=== PATIENT | male | born 1965 | race Caucasian/White ===

== ENCOUNTER 2017-07-14 11:01 | Inpatient (IN) | payer OTHER ==
[~2017-07-14] VITALS: Ht 172.7 cm; Wt 72.6 kg
[~2017-07-14 11:01] MED LIST: PERCOCET 325 MG1 TA2 PO
--- NOTE | 2017-07-14 11:07 | ED AMS/SEIZURE/WEAK/DIZZY ---
See Addendum History of Present Illness General Chief Complaint: Seizure Stated Complaint: SEIZURE X2 THIS AM Source: patient, family, old records, EMS Exam Limitations: no limitations Vital Signs & Intake/Output Vital Signs & Intake/Output Vital Signs Date Time Temp Pulse Resp B/P B/P Pulse O2 O2 Flow FiO2 Mean Ox Delivery Rate 07/14 1115 Room Air Room Air 07/14 1105 96.8 134 18 139/69 97 Room Air Allergies Coded Allergies: MDX - Phenothiazine (PHENOTHIAZINE) (Severe, MOUTH SPAMS, TONGUE BITING 04/26/14 ) Reconcile Medications Abacavir/Dolutegravir/Lamivudi (Triumeq Tablet) 600 MG-50 MG-300 MG TABLET 1 TAB PO DAILY HIV (Reported) Propranolol HCl 10 MG TABLET 1 TAB PO DAILY PRN UNKNOWN (Reported) Trazodone HCl 50 MG TABLET 1 TAB PO QPM SLEEP (Reported) Valacyclovir HCl (Valacyclovir) 1,000 MG TABLET 1 TAB PO TID UNKNOWN ( Reported) Triage Nurses Notes Reviewed? yes HPI: Patient presents to the emergency department after having 2 witnessed seizures this morning. Patient has no history of seizures. Patient has been complaining of an intermittent headache over the past few days which is unusual for him. Patient had a seizure and lateral was contacted. Patient was postictal upon EMS arrival. Patient then had another animal seizure in front of EMS. Patient is currently postictal however he is waking up. Patient has known HIV since 1994 but is viral loads and CD4 counts have always been very good. Patient sees an infectious disease doctor out of [place]. His last CD4 count was 700 to 800 per his . Patient denies any current headache. Patient states that he gets the headache it is more a global pounding sensation that he rates at 4-5 out of 10. There are no fevers. He denies any blurry vision. There is no nausea or vomiting. He denies any neck pain or neck stiffness. Most of the history was obtained from his as the patient is still postictal and slightly confused. does state that back in May patient had a what appeared to be a syncopal episode while on the toilet and he fell and hit his head. states that he did have some convulsion like activity after that but it only lasted a few seconds and then the patient woke up. Patient was not seen after that syncopal episode. Past History Travel History Traveled to [place] past 21 day No Medical History Any Pertinent Medical History? see below for history Neurological: HEADACHE Psychiatric: insomnia Blood Disorders: HIV Surgical History Surgical History: non-contributory Psychosocial History What is your primary language Ugandan Tobacco Use: Never used ETOH Use: occasional use Illicit Drug Use: denies illicit drug use Family History Hx Contributory? No Review of Systems Review of Systems Constitutional: Reports: no symptoms. EENTM: Reports: no symptoms. Respiratory: Reports: no symptoms. Cardiovascular: Reports: no symptoms. GI: Reports: no symptoms. Genitourinary: Reports: no symptoms. Musculoskeletal: Reports: no symptoms. Skin: Reports: no symptoms. Neurological/Psychological: Reports: see HPI, headache. Hematologic/Endocrine: Reports: no symptoms. Immunologic/Allergic: Reports: no symptoms. All Other Systems: Reviewed and Negative Physical Exam Physical Exam General Appearance: well developed/nourished, alert, awake, anxious, mild distress Head: atraumatic Eyes: Bilateral: PERRL, EOMI. Ears, Nose, Throat: TONGUE LACERATION Neck: normal inspection, supple, full range of motion Respiratory: normal breath sounds, chest non-tender, no respiratory distress, lungs clear Cardiovascular: regular rate/rhythm, normal peripheral pulses Gastrointestinal: normal bowel sounds, soft, non-tender Back: normal inspection, normal range of motion Extremities: normal range of motion Neurologic/Psych: no motor/sensory deficits, awake, alert, normal gait, A&OX2 Skin: intact, normal color, warm/dry Core Measures ACS in differential dx? No CVA/TIA Diagnosis No Sepsis Present: No Sepsis Focused Exam Completed? No Progress Differential Diagnosis: arrythmia, anemia, CVA/stroke, drug intoxication, encephalitis, electrolyte imbalance, intracranial Hem., intracranial mass/tumor, presyncope, seizure disorder Plan of Care: Orders Procedure Date/time Status Heart Healthy Diet 07/14 D Active ED Holding Orders 07/14 1256 Active Admit to inpatient 07/14 1256 Active Vital Signs 07/14 1256 Active Code Status 07/14 1256 Active MRI-HEAD W & W/O SANDIE 07/14 1248 Active Add-on Test (ER Only) 07/14 1219 Active Add-on Test (ER Only) 07/14 1135 Active EKG 07/14 1135 Active Telemetry/Terminal Gauger Supervisor 07/14 1107 Active URINE DRUG SCREEN FOR ER ONLY 07/14 110 Active URINALYSIS 07/14 1106 Active TROPONIN LEVEL 07/14 1106 Complete MAGNESIUM 07/14 1106 Complete ETHANOL 07/14 1106 Complete COMPREHENSIVE METABOLIC PANEL 07/14 1106 Complete CBC WITHOUT DIFFERENTIAL 07/14 1106 Complete Current Medications Sig/Kayleigh Start time Last Medication Dose Stop Time Status Admin Levetiracetam 1,000 MG ONCE ONE 07/14 1245 AC (Keppra) 07/14 1259 N/A 1 UNIT (No Carrier) Laboratory Tests 07/14/17 1140: Anion Gap 19 H, Estimated GFR > 60, BUN/Creatinine Ratio 10.0, Glucose 174 H, Calcium 9.0, Magnesium 2.5 H, Total Bilirubin 0.4, AST 36, ALT 35, Alkaline Phosphatase 69, Troponin I < 0.01, Total Protein 7.3, Albumin 4.5, Globulin 2.8, Albumin/Globulin Ratio 1.6, CBC w Diff NO MAN DIFF REQ, RBC 4.01 L, MCV 97.1 H , MCH 33.3 H, RDW 13.7, MPV 6.9 L, Gran % 87.9 H, Lymphocytes % 9.1 L, Monocytes % 2.7, Eosinophils % 0.1, Basophils % 0.2, Absolute Granulocytes 8.2 H, Absolute Lymphocytes 0.8 L, Absolute Monocytes 0.3, Absolute Eosinophils 0, Absolute Basophils 0, PUBS MCHC 34.2, Serum Alcohol < 10.0 07/14/17 1107: Ref Lab Test Result Pending Diagnostic Imaging: Viewed by Me: CT Scan. Discussed w/RAD: CT Scan. Radiology Impression: PATIENT: SAMUEL AGUILAR PRESENT AGE: 52 PATIENT ACCOUNT NO: [id number] : 67 LOCATION: [facility] ORDERING PHYSICIAN: Garrick Flores MD SERVICE DATE: 07/14/17 EXAM TYPE: CAT - CT HEAD WO IV CONTRAST EXAMINATION: CT HEAD WITHOUT CONTRAST CLINICAL INFORMATION: Fall a few weeks ago. New onset seizures. History of HIV. COMPARISON: None. TECHNIQUE: Contiguous axial imaging was performed from the skull base to vertex without intravenous contrast. DLP: 625 mGy-cm. FINDINGS: There is no evidence of acute intracranial hemorrhage. No abnormal mass effect or midline shift is seen. There is hypoattenuation in the left frontal lobe with probable loss of lopez to white matter differentiation.. No extra-axial fluid collections are identified. No hydrocephalus. No significant volume loss. The osseous structures and soft tissues are normal. The mastoid air cells and visualized portions of the paranasal sinuses are well aerated. IMPRESSION: Left frontal hypoattenuation with probable loss of lopez-white matter differentiation is nonspecific given the patient's history. This could represent an infarct of uncertain acuity favoring acute or subacute. Alternatively, this could be associated with a parenchymal lesion and represents surrounding edema. Further evaluation recommended by MRI without and with contrast. This critical result was discussed with Garrick Flores MD by telephone at 07/14/2017 12:05 PM and it was ascertained that the content and urgency of the report was understood at the time of direct communication. DICTATED BY: Roc Amador MD DATE/TIME DICTATED:07/14/171202 TRAVELING AUDITOR:RADU DATE/TIME TRANSCRIBED:1202 CONFIDENTIAL, DO NOT COPY WITHOUT APPROPRIATE AUTHORIZATION. < Electronically signed in Other Vendor System> SIGNED BY: Roc Amador MD 07/14/17 1212 Initial ED EKG: S TACH AT 106, NO ISCHEMIC CHANGES Comments: D/W DR. SYED, RIMMA TO HOLD ON STEROIDS FOR NOW AWAITING MRI WITH CONTRAST. START KEPPRA LOAD WITH 1,000MG AND THEN 500MG BID. Departure Departure Disposition: STILL A PATIENT Condition: Fair Clinical Impression Primary Impression: New onset seizure Secondary Impressions: Brain lesion Referrals: Kate LANCASTER,Reilly Watts (PCP/Family) Departure Forms: Customer Survey General Discharge Information Admission Note Spoke With: Joanne Ferreira MD Documentation of Exam: Documentation of any treatments & extenuating circumstances including Concerns Regarding Discharge (functional status, medication knowledge or non-compliance, living conditions, etc.) that warrant an admission rather than observation: [ FOLLOW UP MRI, KEPPRA, NEURO CONSULTATION (CALLED), KEPPRA BID] Critical Care Note Critical Care Note Critical Care Time: mins: (90 MIN)
[2017-07-14 11:54] LABS: ABSOLUTE BASOPHIL COUNT 0 /CUMM (0.0-0.2); ABSOLUTE EOSINOPHIL COUNT 0 /CUMM (0.0-0.7); ABSOLUTE GRANULOCYTE CT 8.2 /CUMM (1.4-6.5); ABSOLUTE LYMPH COUNT 0.8 /CUMM (1.2-3.4); ABSOLUTE MONOCYTE COUNT 0.3 /CUMM (0.10-0.60); BASOPHIL % 0.2 % (0.0-2.0); EOSINOPHIL % 0.1 % (0-5); MEAN CORPUSCULAR HGB 33.3 PG (27.0-31.0); MEAN CORPUSCULAR HGB CONC 34.2 G/DL (33.0-37.0); MEAN CORPUSCULAR VOLUME 97.1 FL (80.0-94.0); MEAN PLATELET VOLUME 6.9 FL (7.4-10.4); PLATELET COUNT 220 /CUMM (130-400); RBC DISTRIBUTION WIDTH 13.7 % (11.5-14.5); RED BLOOD CELL CT 4.01 /CUMM (4.70-6.10); WHITE BLOOD CELL COUNT 9.3 /CUMM (4.8-10.8)
[2017-07-14] MEDS ORDERED: TRAZODONE HCL50 M1 PO (12:05)
[2017-07-14] MEDS ORDERED: VALACYCLOVIR1000 MG PO (12:05)
[2017-07-14] MEDS ORDERED: TRIUMEQ TABLET1 EACH PO (12:05)
[2017-07-14] MEDS ORDERED: PROPRANOLOL HCL10 M1 PO (12:05)
[2017-07-14 12:07] LABS: GRANULOCYTE % 87.9 % (42.2-75.2)
--- NOTE | 2017-07-14 12:12 | CT SCAN REPORT ---
EXAMINATION: CT HEAD WITHOUT CONTRAST CLINICAL INFORMATION: Fall a few weeks ago. New onset seizures. History of HIV. COMPARISON: None. TECHNIQUE: Contiguous axial imaging was performed from the skull base to vertex without intravenous contrast. DLP: 625 mGy-cm. FINDINGS: There is no evidence of acute intracranial hemorrhage. No abnormal mass effect or midline shift is seen. There is hypoattenuation in the left frontal lobe with probable loss of lopez to white matter differentiation.. No extra-axial fluid collections are identified. No hydrocephalus. No significant volume loss. The osseous structures and soft tissues are normal. The mastoid air cells and visualized portions of the paranasal sinuses are well aerated. IMPRESSION: Left frontal hypoattenuation with probable loss of lopez-white matter differentiation is nonspecific given the patient's history. This could represent an infarct of uncertain acuity favoring acute or subacute. Alternatively, this could be associated with a parenchymal lesion and represents surrounding edema. Further evaluation recommended by MRI without and with contrast. This critical result was discussed with Garrick Flores MD by telephone at 07/14/2017 12:05 PM and it was ascertained that the content and urgency of the report was understood at the time of direct communication.
--- NOTE | 2017-07-14 13:38 | History & Physical ---
Dasia Marion 07/14/17 1337: General Information and HPI MD Statement: I have seen and personally examined SAMUEL CARRILLO and documented this H&P. The patient is a 52 year old M who presented with a patient stated chief complaint of []. Source of Information: patient, family Exam Limitations: confusion History of Present Illness: Mr. 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 Patient seizured once prior EMS arrival, with eyes opened, incontinence, witnessed by the , became postictal upon EMS arrival, and seizured again with EMS on site. Patient denied that he was awared of the two seizuring episodes, and stated that the next thing he knew he was in the ER. Patient stated that his intermittent headache was a global pounding sensation with pain scle 4-5/10, without fever/vision change/N/V/Neck stiffness. The stated that patient had a syncope-like episode in 05/2017 while on toilet, fell and hit his head, with some convulsion-like activiteis x few seconds before waking up. No more syncope episode was observed UPHOLSTERY TECH. Allergies/Medications Allergies: Coded Allergies: Phenothiazines (Severe, MOUTH SPASMS, TONGUE BITING 07/14/17) morphine (SEVERE HYPOTENSION AND NAUSEA 07/14/17) Home Med list Abacavir/Dolutegravir/Lamivudi (Triumeq Tablet) 600 MG-50 MG-300 MG TABLET 1 TAB PO DAILY HIV (Reported) Propranolol HCl 10 MG TABLET 1 TAB PO DAILY PRN UNKNOWN (Reported) Trazodone HCl 50 MG TABLET 1 TAB PO QPM SLEEP (Reported) Valacyclovir HCl (Valacyclovir) 1,000 MG TABLET 1 TAB PO TID UNKNOWN ( Reported) Past History Travel History Traveled to [place] past 21 day No Medical History Neurological: HEADACHE Psychiatric: insomnia Blood Disorders: HIV Surgical History Surgical History: non-contributory Past Family/Social History Psychosocial History Smoking Status: Never Smoked ETOH Use: occasional use Illicit Drug Use: Smoking Pot 1-2/year Review of Systems Review of Systems Constitutional: Reports: see HPI. Exam & Diagnostic Data Last 24 Hrs of Vital Signs/I&O Vital Signs Date Time Temp Pulse Resp B/P B/P Pulse O2 O2 Flow FiO2 Mean Ox Delivery Rate 07/14 1440 97.8 101 18 137/84 99 Room Air 07/14 1115 Room Air Room Air 07/14 1105 96.8 134 18 139/69 97 Room Air Intake & Output 07/14 1600 07/14 0800 07/14 0000 Intake Total 0 Output Total Balance 0 Intake, Oral 0 Patient 77.111 kg Weight Weight Reported by Patient Measurement Method Physical Exam General Appearance Alert, Oriented X3, Cooperative, No Acute Distress Skin No Rashes, No Breakdown, No Significant Lesion HEENT Atraumatic, PERRLA Neck Supple, No JVD, No thryomegaly Cardiovascular Regular Rate Lungs Clear to Auscultation, Normal Air Movement Abdomen Normal Bowel Sounds, Soft, No Tenderness Neurological Normal Speech, Strength at 5/5 X4 Ext, Normal Tone, Sensation Intact Extremities No Cyanosis, No Edema, Normal Pulses, No Tenderness/Swelling Last 24 Hrs of Labs/Andre: Laboratory Tests 07/14/17 1419: HIV 1&2 RNA (PCR) Pending 07/14/17 1350: Urine Opiates Screen < 100.00, Methadone Screen 46, Barbiturate Screen < 60, Ur Phencyclidine Scrn < 6.00, Amphetamines Screen < 100, U Benzodiazepines Scrn < 85, Urine Cocaine Screen < 50, Urine Cannabis Screen < 5.00, Urinalysis LIGHT H , Urine Color YEL, Urine Clarity CLEAR, Urine pH 6.0, Ur Specific [place] 1.020, Urine Protein 30 H, Urine Ketones NEG, Urine Nitrite NEG, Urine Bilirubin NEG, Urine Urobilinogen 0.2, Ur Leukocyte Esterase NEG, Ur Microscopic SEDIMENT EXAMINED, Urine RBC 5-10 H, Urine WBC 1-3 H, Ur Epithelial Cells MOD H, Hyaline Casts 1-3 H, Granular Casts 1-3 H, Urine Mucus RARE, Urine Hemoglobin MOD H, Urine Glucose NEG 07/14/17 1140: Anion Gap 19 H, Estimated GFR > 60, BUN/Creatinine Ratio 10.0, Glucose 174 H, Calcium 9.0, Magnesium 2.5 H, Total Bilirubin 0.4, AST 36, ALT 35, Alkaline Phosphatase 69, Lactate Dehydrogenase 563, Troponin I < 0.01, Total Protein 7.3, Albumin 4.5, Globulin 2.8, Albumin/Globulin Ratio 1.6, CBC w Diff NO MAN DIFF REQ, RBC 4.01 L, MCV 97.1 H, MCH 33.3 H, RDW 13.7, MPV 6.9 L, Gran % 87.9 H , Lymphocytes % 9.1 L, Monocytes % 2.7, Eosinophils % 0.1, Basophils % 0.2, Absolute Granulocytes 8.2 H, Absolute Lymphocytes 0.8 L, Absolute Monocytes 0.3, Absolute Eosinophils 0, Absolute Basophils 0, PUBS MCHC 34.2, Serum Alcohol < 10.0 07/14/17 1107: Ref Lab Test Result Pending Microbiology 07/14 144 URINE ROUT: Urine Culture - ORD 07/14 144 LOWER RESP: Respiratory Culture - ORD 07/14 144 LOWER RESP: Gram Stain - ORD 07/14 144 BLOOD: Blood Culture - ORD 07/14 1442 BLOOD: Blood Culture - ORD Diagnostic Data EKG Results NSR without ST-T anomalities, some PVCs Assessment/Plan Assessment: Mr. 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 Patient seizured once prior EMS arrival, with eyes opened, incontinence, witnessed by the , became postictal upon EMS arrival, and seizured again with EMS on site. Patient denied that he was awared of the two seizuring episodes, and stated that the next thing he knew he was in the ER. Patient stated that his intermittent headache was a global pounding sensation with pain scle 4-5/10, without fever/vision change/N/V/Neck stiffness. ER Course: Objective Vitals: Stable afebrile, normatensive Physical exam -Gen.: AO x3, cooperative, no distress, -HEENT: NCAT, PERRL, EOMI, anicteric sclera, moist mucous membranes -Neck: Supple, no JVD, trachea midline, no accessory respiratory muscle use -Cardio: Normal S1/S2 without significant murmurs/gallops/rubs -Pulmonary: grossly normal air movement w/ clear auscultation -Abdomen: Soft, nontender, nondistended, bowel sounds intact -Extremity: Normal pulses/capillary refill, no cyanosis/clubbing/edema Labs/imaging/EKG/interventions -CBC: WBC 9.3, H/H 13.3/39.0, PLT 220 -BMP: Na 135, K 4.2, Cr 1.1, Glu 174, otherwise unremarkable -Misc: Troponin -ve Head CT: Left frontal hypoattenuation with probable loss of lopez-white matter differentiation is nonspecific given the patient's history. This could represent an infarct of uncertain acuity favoring acute or subacute. Alternatively, this could be associated with a parenchymal lesion and represents surrounding edema. Further evaluation recommended by MRI without and with contrast. -EKG: Normal sinus rhythm with some PVCs -Interventions in ER: Keppra IV 1000U Problem list #Brain Lesion #New-Onset seizure #HIV Plan - Admit to general medicine - Started Keppra 500mg PO BID for seizure prophylaxis, Pending Neurology consult. - MRI brain 07/14/2017: There is abnormal platelike and nodular pachymeningeal enhancement seen within the left frontal and right anterior temporal regions with associated nonenhancing, likely reactive, parenchymal changes. There is some scattered susceptibility artifact, possibly some petechial hemorrhage, and leptomeningeal enhancement in the involved left frontal region. In addition, there is abnormal enhancement in the right internal auditory canal extending into the right inner ear structures. There is a small amount of fluid in the right petrous apex with equivocal associated enhancement. In the setting of HIV/ immunocompromise, an atypical/opportunistic infectious process is of concern including fungal and/or mycobacterial processes. Neoplasm such as lymphoma or granulomatous disease can have unusual appearances. Correlation with CSF analysis is suggested. - Would proceed with Lumbar Puncture, Pending ID consult in the AM - Continued home meds of Triumeq (from home), Trazodone 50mg qpm - Pain control w/ tylenol/dilaudid, if needed. DVT prophylaxis Lovenox + ALPS Heart Healthy Diet Full Code As Ranked By This Provider Problem List: 1. Brain lesion 2. New onset seizure 3. HIV (human immunodeficiency virus infection) Core Measures/Misc (03/27) Acute Coronary Syndrome ACS Diagnosis: No Congestive Heart Failure Congestive Heart Failure Diagnosis No Cerebrovascular Accident CVA/TIA Diagnosis: No VTE (View Protocol) VTE Risk Factors Age>40 No Mechanical VTE Prophylaxis d/t N/A MechProphylax Ordered No VTE Pharm Prophylaxis d/t NA PharmProphylax ordered Sepsis (View protocol) Sepsis Present: No Jessica Abernathy 07/14/17 1419: Attending MD Review Statement Attending Statement Attending MD Statement: examined this patient, discuss w/resident/PA/EDITOR TRADE JOURNAL, agreed w/resident/PA/EDITOR TR[employer]RNA[employer], discussed with family, reviewed EMR data (avail), discussed with nursing, discussed with case mgmt, reviewed images, amended to note Attending Assessment/Plan: 52 o/m with pmh of hiv with CD 4 count >800 maintained on oral regimen as outpatient and follows ID as outpatient. Patient came to ER with two witnessed seizure episodes with urinary incontinence and tongue bite. Patient c/o frontal headache ongoign for past few days. No Focal neurologic deficit. Neurology consulted in ER Labs and imaging reviewed CT head possibel frontoparietal mass ???infarct acue/subacute. Plan is to admit to inpatient medical services for seziures and possible frontoparietal mass in HIV patient setting, Obtain MRI brain to better delineate. Neurology consult. Neurochecks q 4, fall precautions. Patient given iv keppra in ER c/w iv keppra 500 bid as per neurology. f/u CD4 count and viral load. Resume home meds. Obtain previous records. cont supportive care. gi/dvt prophylaxis full code, plan of care d/tue patient in ER. Bridger Palacio 07/14/17 1448: Resident Review Statement Resident Statement: examined this patient, discussed with programming internship, agreed with programming internship, discussed with family, reviewed EMR data (avail), discussed with nursing , reviewed images Other Findings: Mr. Carrillo is a 52-year-old man with past medical history of HIV for about 28 years on antiretroviral therapy, anxiety, hypertension (initially treated with metoprolol for blood pressure/anxiety not on that anymore) presented to emergency department with a chief complaint of seizure. Patient accompanied by who witnessed the seizure episode, first episode was today at 10 AM, lasted for about 1 minutes, described as a tonic chronic seizure, with eyes rolling, and he bit his tongue, unconscious of the surrounding, incontinent to urine, no bowel movement during the episodes, he remained confused after the episode, and 2 hours later he had another seizure for less than a minute in his way to the emergency department with similar description. The patient admits good compliant with his medication, he report having headache over the last week, started in the left side then the right side, pressure in nature, no neck stiffiness reported. He also noticed some numbness on the left hand which is not new a finding, he report having the numbness once in a while. He also complains of sore throat, and cough with clear phlegm, no blood. Patient had ear fullness on the left side with decrease hearing, he went to a clinic and his ear was irrigated with peroxide. He denies fever, chest pain, sob and no change in urinary or bowel habits, no weakness or loss of sensation. Offnote: Patient sees an infectious disease doctor out of [place]. His last CD4 count was 700 to 800,about 9 months ago and his viral load was undetectable, he is not on any prophylaxis #Assessment: -Generalized tonic-clonic seizure -Abnormal MRI finding which could be new Lymphoma or opportunistic infection such as Toxoplasma, cryptococcus, TB ...etc -History of HIV for about 25 years -History of an anxiety #Plan: - Admit to General medicine -Will obtain CSF, will sent cell count, protein, glucose, culture, fungal culture. hsv pcr, EBV pcr, AFB smear and culture -Cryptococcal antigen -Will obtain ID consult - Vitals Q4 hour - MRI brain done at the emergency department which showed - Will obtain official neurology consult -CD4 count and viral load was sent to follow up the results -Panculture the patient given that he has sore throat, and cough productive of clear phlegm - Patient received a loading dose of Keppra at ED, we will continue with 500 mg twice a day - We'll continue his antiretroviral therapy, he is on abacavir/Dulotegravir/ Lamivudin (Triumeq) 1 tablet by mouth daily -We will check lactate dehydrogenase for cyptococcal -Medication confirmed with the patient at home he is only on his antiretroviral therapy, and trazodone -Update: Patient spiked fever up to 102.2, he was started on broad spectrum antibiotic for meningitis, ceftriaxone and azithromycin, I spoke with , who recommend giving Decadron prior to antibiotic, and place the patient on isolation, will evaluate the patient at am. If any concern at night call DVT [facility] for now pending MRI results Full code
--- NOTE | 2017-07-14 15:14 | MRI REPORT ---
EXAMINATION: MR BRAIN WITHOUT AND WITH CONTRAST CLINICAL INFORMATION: New-onset seizures. History of HIV. Headache. Abnormal head CT. COMPARISON: Head CT from earlier the same day. TECHNIQUE: MRI of the brain was obtained using routine sequences before and after the intravenous administration of 8 mL of Gadavist. FINDINGS: There is abnormal pachymeningeal enhancement along the left parasagittal frontal convexity with an area of nodularity measuring approximately 5 mm as well as some leptomeningeal involvement in the adjacent left frontal sulci. There is adjacent parenchymal T2 prolongation with facilitated diffusion, regional sulcal effacement, and no definitive abnormal parenchymal enhancement. There is some susceptibility artifact within this region which may reflect some hemosiderin deposition/petechial hemorrhage or possibly be within the sulci. There is an area of pachymeningeal enhancement along the anterior aspect of the right middle cranial fossa with a small area of nodularity measuring 5 mm. Adjacent to this there is also an area of parenchymal T2 prolongation in the anterior right temporal lobe with facilitated diffusion and no enhancement. There is abnormal enhancement within the right internal auditory canal. There is abnormal enhancement within the right cochlea most notably within the basal turn and within the right vestibule. There is asymmetric pneumatization of the petrous apices, left more pneumatized than right. On the CT there was a small amount of opacification in one of the right petrous apex air cells. There is the suggestion of faint asymmetric enhancement in the right petrous apex when comparing the pre and postcontrast axial T1-weighted images (see for example series 8 image 4 versus series 14 image 4). Otherwise marrow signal appears preserved. No abnormally restricted diffusion. A few additional punctate foci of T2 prolongation are seen in the left frontal and right frontal deep white matter, nonspecific and nonenhancing. No extra-axial collections. No shift of the normally midline structures. The major arterial and venous flow voids are preserved. There is mild generalized prominence of the ventricles and sulci. No abnormalities of the posterior fossa. The cerebellar tonsils are normally positioned. The sellar and suprasellar regions appear unremarkable. There is mild mucosal thickening in the ethmoid air cells. The nasal cavity, nasopharynx, and mastoid air cells are clear. The orbits appear unremarkable. IMPRESSION: There is abnormal platelike and nodular pachymeningeal enhancement seen within the left frontal and right anterior temporal regions with associated nonenhancing, likely reactive, parenchymal changes. There is some scattered susceptibility artifact, possibly some petechial hemorrhage, and leptomeningeal enhancement in the involved left frontal region. In addition, there is abnormal enhancement in the right internal auditory canal extending into the right inner ear structures. There is a small amount of fluid in the right petrous apex with equivocal associated enhancement. In the setting of HIV/immunocompromise, an atypical/opportunistic infectious process is of concern including fungal and/or mycobacterial processes. Neoplasm such as lymphoma or granulomatous disease can have unusual appearances. Correlation with CSF analysis is suggested. This critical result was communicated with Dr. Flores at 1451 on 07/14/2017 and the content and urgency was understood at the time of direct communication.
--- NOTE | 2017-07-14 18:12 | RADIOLOGY REPORT ---
EXAMINATION: XR PORTABLE CHEST CLINICAL INFORMATION: Fever. COMPARISON: Chest x-ray 04/26/2014 TECHNIQUE: Portable frontal view of the chest was obtained. 5:35 PM FINDINGS: No significant abnormality is noted involving the heart, lungs, mediastinum, bony thorax or soft tissues. IMPRESSION: Unremarkable examination.
[2017-07-15 06:25] LABS: ABSOLUTE BASOPHIL COUNT 0 /CUMM (0.0-0.2); ABSOLUTE EOSINOPHIL COUNT 0 /CUMM (0.0-0.7); ABSOLUTE GRANULOCYTE CT 5.9 /CUMM (1.4-6.5); ABSOLUTE LYMPH COUNT 1.6 /CUMM (1.2-3.4); ABSOLUTE MONOCYTE COUNT 0.6 /CUMM (0.10-0.60); BASOPHIL % 0.4 % (0.0-2.0); EOSINOPHIL % 0 % (0-5); GRANULOCYTE % 72.9 % (42.2-75.2); HEMATOCRIT 41.3 % (42-52); MEAN CORPUSCULAR HGB 32.8 PG (27.0-31.0); MEAN CORPUSCULAR HGB CONC 33.5 G/DL (33.0-37.0); MEAN CORPUSCULAR VOLUME 97.9 FL (80.0-94.0); MEAN PLATELET VOLUME 6.7 FL (7.4-10.4); PLATELET COUNT 244 /CUMM (130-400); RBC DISTRIBUTION WIDTH 14.2 % (11.5-14.5); RED BLOOD CELL CT 4.22 /CUMM (4.70-6.10); WHITE BLOOD CELL COUNT 8.1 /CUMM (4.8-10.8)
--- NOTE | 2017-07-15 08:23 | PN- Housestaff ---
Dasia Marion Gurwinder Will 07/15/17 0817: Subjective Follow-up For: #Brain Lesion #New-Onset seizure #HIV Subjective: Patient felt generally ok without much change of existing symptoms. Review of Systems Constitutional: Reports: see HPI. Objective Last 24 Hrs of Vital Signs/I&O Vital Signs Date Time Temp Pulse Resp B/P B/P Pulse O2 O2 Flow FiO2 Mean Ox Delivery Rate 07/15 0647 98.2 72 18 128/78 95 Room Air 07/14 2237 98.2 98 18 128/79 97 Room Air 07/14 1719 101.1 07/14 1719 101.1 98 18 114/79 97 Nasal 3.0L Cannula 07/14 1649 102.2 103 15 143/89 Room Air Room Air 07/14 1648 102.2 07/14 1601 Room Air Room Air 07/14 1544 93 15 134/89 95 Nasal 2.0L Cannula 07/14 1523 52 15 62/35 90 Room Air Room Air 07/14 1440 97.8 101 18 137/84 99 Room Air 07/14 1115 Room Air Room Air 07/14 1105 96.8 134 18 139/69 97 Room Air Intake & Output 07/15 1600 07/15 0800 07/15 0000 Intake Total 220 Output Total Balance 220 Intake, IV 20 Intake, Oral 200 Patient 72.575 kg Weight Weight Estimated Measurement Method Physical Exam General Appearance: Alert, Oriented X3, Cooperative, No Acute Distress Cardiovascular: Regular Rate Lungs: Clear to Auscultation, Normal Air Movement Abdomen: Soft, No Tenderness Neurological: Normal Speech Extremities: No Cyanosis, No Edema, Normal Pulses Current Medications: Current Medications Sig/Kayleigh Start time Last Medication Dose Route Stop Time Status Admin Acetaminophen 0 .STK-MED ONE 07/14 164 DC IV Acetaminophen 1,000 MG ONCE ONE 07/14 1645 DC 07/14 N/A 1 UNIT IV 07/14 1658 164 Acetaminophen 1,000 MG Q6P PRN 07/14 144 AC IV Acetaminophen 500 MG Q6P PRN 07/14 1445 AC PO Ceftriaxone Sodium 0 .STK-MED ONE 07/14 1858 DC .ROUTE Ceftriaxone Sodium 2,000 MG ONCE ONE 07/14 1845 DC 07/14 IV 07/14 1841999 Dexamethasone 10 MG ONCE ONE 07/14 191 DC 07/14 IV 01/04 1916 1928 Dexamethasone 10 MG .[ONCE\] 07/14 1900 AC Dextrose/Water 50 ML IV Emtricitabine/ 1 TAB DAILY 07/15 1000 AC Tenofovir PO Enoxaparin Sodium 40 MG DAILY 07/15 1000 AC 07/15 SC 1043 Ibuprofen 600 MG Q6P PRN 07/14 1445 CAN PO Levetiracetam 500 MG BID 07/14 2200 AC 07/15 PO 1043 Levetiracetam 1,000 MG ONCE ONE 07/14 1245 DC 07/14 N/A 1 UNIT IV 07/14 1259 1423 Lidocaine 0 .STK-MED ONE 07/14 1647 DC .ROUTE Lidocaine 0 .STK-MED ONE 07/14 1615 DC .ROUTE Lidocaine 20 ML ONCE ONE 07/14 1515 DC 07/14 ID 07/14 1516 1544 Lidocaine 0 .STK-MED ONE 07/14 1510 DC .ROUTE Morphine Sulfate 4 MG ONCE ONE 07/14 1515 DC 07/14 IV 07/14 1516 1525 Morphine Sulfate 0 .STK-MED ONE 07/14 1515 DC .ROUTE Non-Formulary 0 SEE ADMIN CRITERIA 07/14 1815 CAN Medication ANY Ondansetron HCl 4 MG ONCE ONE 07/14 1530 DC 07/14 IV 07/14 1531 1536 Ondansetron HCl 0 .STK-MED ONE 07/14 1521 DC .ROUTE Raltegravir 400 MG BID 07/15 1000 AC PO Sodium Chloride 1,000 ML BOLUS ONE 07/14 1530 DC 07/14 IV 07/14 1629 1536 Sodium Chloride 1,000 ML BOLUS ONE 07/14 1530 DC 07/14 IV 07/14 1629 1536 Vancomycin HCl 1,000 MG ONCE ONE 07/14 1845 DC 07/14 Sodium Chloride 250 ML IV 07/14 1944 1999 Last 24 Hrs of Lab/Andre Results Last 24 Hrs of Labs/Mics: Laboratory Tests 07/15/17 0614: Anion Gap 12, Estimated GFR > 60, BUN/Creatinine Ratio 13.0, CBC w Diff NO MAN DIFF REQ, RBC 4.22 L, MCV 97.9 H, MCH 32.8 H, RDW 14.2, MPV 6.7 L, Gran % 72.9, Lymphocytes % 19.6 L, Monocytes % 7.1, Eosinophils % 0, Basophils % 0.4, Absolute Granulocytes 5.9, Absolute Lymphocytes 1.6, Absolute Monocytes 0.6, Absolute Eosinophils 0, Absolute Basophils 0, PUBS MCHC 33.5 07/15/17 0600: Ref Lab Test Result Pending 07/14/17 1735: CSF WBC 45 *H, CSF RBC 6 H, CSF Comment 07/14/17 1735: Lymphocytes 82, % Normal PMNs 3, Misc Hematology Test , Flow Cytometry Specimen Pending, Fluid LDH 158, CSF Glucose 57, CSF Total Protein 110 H 07/14/17 1717: Ref Lab Test Result Pending, Ref Lab Test Result Pending, Ref Lab Test Result Pending, CSF VDRL Pending, Herpes Simplex Source Pending, HSV I DNA PCR Pending, HSV II DNA PCR Pending 07/14/17 1705: Virus Culture Pending 07/14/17 1419: HIV 1&2 RNA (PCR) Pending 07/14/17 1350: Urine Opiates Screen < 100.00, Methadone Screen 46, Barbiturate Screen < 60, Ur Phencyclidine Scrn < 6.00, Amphetamines Screen < 100, U Benzodiazepines Scrn < 85, Urine Cocaine Screen < 50, Urine Cannabis Screen < 5.00, Urinalysis LIGHT H , Urine Color YEL, Urine Clarity CLEAR, Urine pH 6.0, Ur Specific [place] 1.020, Urine Protein 30 H, Urine Ketones NEG, Urine Nitrite NEG, Urine Bilirubin NEG, Urine Urobilinogen 0.2, Ur Leukocyte Esterase NEG, Ur Microscopic SEDIMENT EXAMINED, Urine RBC 5-10 H, Urine WBC 1-3 H, Ur Epithelial Cells MOD H, Hyaline Casts 1-3 H, Granular Casts 1-3 H, Urine Mucus RARE, Urine Hemoglobin MOD H, Urine Glucose NEG Microbiology 07/14 2158 CENT N S: AFB Culture with PCR Identification - CAN Cancelled: Cancelled via OE: Duplicate Order 07/14 2159 CENT N S: AFB Smear Concentration - CAN Cancelled: Cancelled via OE: Duplicate Order 07/14 1900 BLOOD: Blood Culture - RES 07/14 1735 CENT N S: CSF Culture - RES 07/14 1735 CENT N S: Gram Stain - RES 07/14 1727 CENT N S: Fungal Culture - CAN Cancelled: @ QNS / CONFIRMED WITH GREGORY Hernandez 07/14 1722 CENT N S: AFB Culture with PCR Identification - RES 07/14 1722 CENT N S: AFB Smear Concentration - RES 07/14 1721 STOOL: Cryptosporidium Antigen - COLB 07/14 172 STOOL: Giardia Antigen (ANDRE) - COLB 07/14 171 BODY FLUID: Body Fluid Culture - CAN Cancelled: ERROR 07/14 171 BODY FLUID: Gram Stain - CAN Cancelled: ERROR 07/14 1710 NASOPHARYN: Influenza Virus A & B Rapid Smear - COMP 07/14 1443 URINE ROUT: Urine Culture - CAN Cancelled: Cancelled via OE: ADD ON 07/14 144 LOWER RESP: Respiratory Culture - COLB 07/14 1443 LOWER RESP: Gram Stain - COLB 07/14 1443 BLOOD: Blood Culture - CAN Cancelled: SPECIMEN NOT RECEIVED IN LABORATORY 07/14 1350 URINE ROUT: Urine Culture - RES Assessment/Plan Assessment: Mr. Carrillo is a 52yo M w/ PMH of HIV on Abacavir/Dolutegravir/Lamivudi, remote high blood pressure and anxiety on propranolol PRN, presented to the ER with CC 2 witness seizure this morning [employer] and intermittent headache over hte past few days. Patient seizured once prior EMS arrival, with eyes opened, incontinence, witnessed by the , became postictal upon EMS arrival, and seizured again with EMS on site. Patient denied that he was awared of the two seizuring episodes, and stated that the next thing he knew he was in the ER. Patient stated that his intermittent headache was a global pounding sensation with pain scle 4-5/10, without fever/vision change/N/V/Neck stiffness. ER Course: Objective Vitals: Stable afebrile, normatensive Physical exam -Gen.: AO x3, cooperative, no distress, -HEENT: NCAT, PERRL, EOMI, anicteric sclera, moist mucous membranes -Neck: Supple, no JVD, trachea midline, no accessory respiratory muscle use -Cardio: Normal S1/S2 without significant murmurs/gallops/rubs -Pulmonary: grossly normal air movement w/ clear auscultation -Abdomen: Soft, nontender, nondistended, bowel sounds intact -Extremity: Normal pulses/capillary refill, no cyanosis/clubbing/edema Labs/imaging/EKG/interventions -CBC: WBC 9.3, H/H 13.3/39.0, PLT 220 -BMP: Na 135, K 4.2, Cr 1.1, Glu 174, otherwise unremarkable -Misc: Troponin -ve Head CT: Left frontal hypoattenuation with probable loss of lopez-white matter differentiation is nonspecific given the patient's history. This could represent an infarct of uncertain acuity favoring acute or subacute. Alternatively, this could be associated with a parenchymal lesion and represents surrounding edema. Further evaluation recommended by MRI without and with contrast. -EKG: Normal sinus rhythm with some PVCs -Interventions in ER: Keppra IV 1000U Problem list #Brain Lesion #New-Onset seizure #HIV Assessment: Upon admission, clinical questions of Mr. Carrillo's conditions including - HIV/CD4 status: pending CD4 lab to confirm patient's immune status was still active from last time he was checked. If patient would be active HIV with detectable viral load/dropping CD4 count, HIV-related meningitis/encephalitis would be more likely, else, differential dx would lean towards other etiology of immunocompetent individuals. - Meningitis/Encephalitis/Lymphoma: patient's incidental findings of frontal and temporal lesions on MRI could be part of infectious/viral/fungal infection, or lymphoma pending rule out by CSF/cytology. Lumbar puncture showed clear tap w/ elevated protein, WBC, and normal glucose, and patient's spiked fever of 102 once, negative physical exams, leaned toward more of viral/fungal infection, and lymphoma pending rule out. - Seizure: unclear causes, but likely due to brain lesions unless proven otherwise. Plan - Started Keppra 500mg PO BID for seizure prophylaxis. - Neurology consult suggested EEG, large volume tap with serial CSF studies, and possible biopsy if all above had been non-specific. - Appreciated ID consult, would continue Ceftriaxone 2g IV q12, and Decadron 10mg IV q6 until bacterial infection had been ruled out. - MRI brain 07/14/2017: There is abnormal platelike and nodular pachymeningeal enhancement seen within the left frontal and right anterior temporal regions with associated nonenhancing, likely reactive, parenchymal changes. There is some scattered susceptibility artifact, possibly some petechial hemorrhage, and leptomeningeal enhancement in the involved left frontal region. In addition, there is abnormal enhancement in the right internal auditory canal extending into the right inner ear structures. There is a small amount of fluid in the right petrous apex with equivocal associated enhancement. In the setting of HIV/ immunocompromise, an atypical/opportunistic infectious process is of concern including fungal and/or mycobacterial processes. Neoplasm such as lymphoma or granulomatous disease can have unusual appearances. Correlation with CSF analysis is suggested. - Continued home meds of Triumeq (from home), Trazodone 50mg qpm - Pain control w/ tylenol/dilaudid, if needed. DVT prophylaxis Lovenox + ALPS Heart Healthy Diet Full Code Problem List: 1. HIV (human immunodeficiency virus infection) 2. Brain lesion 3. New onset seizure Pain Ratin Pain Location: NA Pain Goal: Remain pain free Pain Plan: see AP Tomorrow's Labs & Rationales: CBC/BEP Jessica Abernathy 07/15/17 1237: Attending MD Review Statement Attending Statement Attending MD Statement: examined this patient, discuss w/resident/PA/BODY WORKER, agreed w/resident/PA/BODY WORKER, discussed with family, reviewed EMR data (avail), discussed with nursing, discussed with case mgmt, reviewed images, amended to note Attending Assessment/Plan: 52 o/m with pmh of hiv with CD 4 count >800 maintained on oral regimen as outpatient and follows ID as outpatient. Patient came to ER with two witnessed seizure episodes with urinary incontinence and tongue bite. Patient c/o frontal headache ongoign for past few days. No Focal neurologic deficit. Neurology and ID consulted in ER. Labs and imaging reviewed, Overnight had fever with stable BP. CT head possibel frontoparietal mass ???infarct acue/subacute. MRI brain with leptomeningeal enhancement on frontal lobe and temporal lobe. CSF analysis suggestive of lymphocytosis with pleocytosis. Plan is to admit to inpatient medical services for seziures and possible frontal mass and temporal lesion r/o infection ( viral unlikely bacterial) in HIV patient setting, Neurology consulted and recommend flow cytometry. Neurochecks q 4, fall precautions. c/w keppra 500 bid as per neurology. f/u CD4 count and viral load. Follow ID and neurology. Resume home meds. Obtain previous records. cont supportive care. gi/dvt prophylaxis full code, plan of care d/tue patient in ER.
--- NOTE | 2017-07-15 10:33 | Cons- Infect Disease ---
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, with an undetectable viral load and a CD4 count of 800 on antiretroviral therapy when last tested 8 months prior to admission, on no pneumocystis or GAGE prophylaxis, with a history of recurrent herpes zoster over the right chest, most recently several months prior to admission, and chronic right ear clogging, status post a syncopal episode 8 weeks prior to admission, since which he has noted left frontal and, more recently, parietal headaches and left facial and left upper extremity numbness, admitted on July 14 after a grand mal seizure at home and another one in the ambulance on the way to the hospital. On admission he was initially afebrile but he did spike to 102.2. Laboratory data revealed a white blood cell count of 9000, BUN/creatinine 11 and 1.1, with normal liver enzymes. Urinalysis 5-10 RBCs/1-[address] of the head without contrast revealed left frontal hypoattenuation. MRI of the head with and without gadolinium revealed an abnormal platelike and nodular pachymeningeal enhancement within the left frontal and right anterior temporal regions with associated nonenhancing, likely reactive, parenchymal changes, possibly with some petechial hemorrhage and leptomeningeal enhancement in the involved left frontal region; abnormal enhancement in the right internal auditory canal extending into the right inner ear structures, with a small amount of fluid in the right petrous apex. Chest x -ray was negative. A lumbar puncture was performed and revealed 45 white blood cells (3% polys and 82% lymphs), 6 red blood cells, protein 110 and glucose 57. He was given Morphine with consequent hypotension, which quickly resolved. He was given Decadron, followed by Vancomycin and Ceftriaxone. He defervesced overnight and has remained afebrile this morning. He has had no further seizures and offers no complaints at this time. Allergies/Medications Allergies: Coded Allergies: Phenothiazines (Severe, MOUTH SPASMS, TONGUE BITING 07/14/17) morphine (SEVERE HYPOTENSION AND NAUSEA 07/14/17) Home Med List: Abacavir/Dolutegravir/Lamivudi (Triumeq Tablet) 600 MG-50 MG-300 MG TABLET 1 TAB PO DAILY HIV (Reported) Propranolol HCl 10 MG TABLET 1 TAB PO DAILY PRN UNKNOWN (Reported) Trazodone HCl 50 MG TABLET 1 TAB PO QPM SLEEP (Reported) Valacyclovir HCl (Valacyclovir) 1,000 MG TABLET 1 TAB PO TID UNKNOWN ( Reported) Past History Travel History Traveled to [place] past 21 day No Medical History Cardiovascular: hypertension Psychiatric: anxiety, insomnia Blood Disorders: HIV History of MRSA: No History of VRE: No History of CDIFF: No Isolation History: Standard Surgical History Surgical History: non-contributory Psychosocial History Where Do You Live? Home Smoking Status: Never Smoked ETOH Use: occasional use Illicit Drug Use: Smoking Pot 1-2/year Review of Systems Review of Systems All Other Systems: Reviewed and Negative Exam & Diagnostic Data Last 24 Hrs of Vital Signs/I&O Vital Signs Date Time Temp Pulse Resp B/P B/P Pulse O2 O2 Flow FiO2 Mean Ox Delivery Rate 07/15 0647 98.2 72 18 128/78 95 Room Air 07/14 2237 98.2 98 18 128/79 97 Room Air 07/14 1719 101.1 07/14 1719 101.1 98 18 114/79 97 Nasal 3.0L Cannula 07/14 1649 102.2 103 15 143/89 Room Air Room Air 07/14 1648 102.2 07/14 1601 Room Air Room Air 07/14 1544 93 15 134/89 95 Nasal 2.0L Cannula 07/14 1523 52 15 62/35 90 Room Air Room Air 07/14 1440 97.8 101 18 137/84 99 Room Air 07/14 1115 Room Air Room Air 07/14 1105 96.8 134 18 139/69 97 Room Air Intake & Output 07/15 1600 07/15 0800 07/15 0000 Intake Total 220 Output Total Balance 220 Intake, IV 20 Intake, Oral 200 Patient 160 lb Weight Weight Estimated Measurement Method Physical Exam Other Physical Findings: MAXIMUM TEMPERATURE 102.2 on steroids. He is awake and alert in no acute distress. Skin reveals no rash. HEENT negative. Neck is supple with no adenopathy. Lungs are clear. Heart regular rhythm with no murmur. Abdomen is soft, nontender with positive bowel sounds. Back no CVA tenderness. Extremities no cyanosis, clubbing or edema. Neuro decreased sensation over the left forehead, with no other focality noted. Last 24 Hours of Lab Results: Laboratory Tests 07/15 07/15 07/14 07/14 0614 0600 1735 1735 Chemistry Sodium (137 - 145 mmol/L) 141 Potassium (3.5 - 5.1 mmol/L) 4.2 Chloride (98 - 107 mmol/L) 107 Carbon Dioxide (22 - 30 mmol/L) 22 Anion Gap (5 - 16) 12 BUN (9 - 20 mg/dL) 13 Creatinine (0.7 - 1.2 mg/dL) 1.0 Estimated GFR (>60 ml/min) > 60 BUN/Creatinine Ratio (7 - 25 %) 13.0 Hematology CBC w Diff NO MAN DIFF REQ WBC (4.8 - 10.8 /CUMM) 8.1 RBC (4.70 - 6.10 /CUMM) 4.22 L Hgb (14.0 - 18.0 G/DL) 13.9 L Hct (42 - 52 %) 41.3 L MCV (80.0 - 94.0 FL) 97.9 H MCH (27.0 - 31.0 PG) 32.8 H RDW (11.5 - 14.5 %) 14.2 Plt Count (130 - 400 /CUMM) 244 MPV (7.4 - 10.4 FL) 6.7 L Gran % (42.2 - 75.2 %) 72.9 Lymphocytes % (20.5 - 51.1 %) 19.6 L Monocytes % (1.7 - 9.3 %) 7.1 Eosinophils % (0 - 5 %) 0 Basophils % (0.0 - 2.0 %) 0.4 Absolute Granulocytes (1.4 - 6.5 /CUMM) 5.9 Absolute Lymphocytes (1.2 - 3.4 /CUMM) 1.6 Lymphocytes (%) 82 Absolute Monocytes (0.10 - 0.60 /CUMM) 0.6 Absolute Eosinophils (0.0 - 0.7 /CUMM) 0 Absolute Basophils (0.0 - 0.2 /CUMM) 0 % Normal PMNs (%) 3 PUBS MCHC (33.0 - 37.0 G/DL) 33.5 Misc Hematology Test (%) Miscellaneous Ref Lab Test Result Pending Other Body Source Fluid LDH (U/L) 158 CSF WBC (0 - 5 /CUMM) 45 *H CSF RBC (-0 /CUMM) 6 H CSF Comment CSF Glucose (40 - 70 mg/dL) 57 CSF Total Protein (12 - 60 mg/dL) 110 H 07/14 07/14 07/14 1717 1705 1419 Miscellaneous Ref Lab Test Result Pending Ref Lab Test Result Pending Ref Lab Test Result Pending Other Body Source CSF VDRL Pending Serology Herpes Simplex Source Pending HSV I DNA PCR Pending HSV II DNA PCR Pending HIV 1&2 RNA (PCR) Pending Virus Culture Pending 07/14 07/14 1350 1140 Chemistry Sodium (137 - 145 mmol/L) 135 L Potassium (3.5 - 5.1 mmol/L) 4.2 Chloride (98 - 107 mmol/L) 101 Carbon Dioxide (22 - 30 mmol/L) 15 L Anion Gap (5 - 16) 19 H BUN (9 - 20 mg/dL) 11 Creatinine (0.7 - 1.2 mg/dL) 1.1 Estimated GFR (>60 ml/min) > 60 BUN/Creatinine Ratio (7 - 25 %) 10.0 Glucose (65 - 99 mg/dL) 174 H Calcium (8.4 - 10.2 mg/dL) 9.0 Magnesium (1.6 - 2.3 mg/dL) 2.5 H Total Bilirubin (0.2 - 1.3 mg/dL) 0.4 AST (17 - 59 U/L) 36 ALT (21 - 72 U/L) 35 Alkaline Phosphatase (< 127 U/L) 69 Lactate Dehydrogenase (313 - 618 U/L) 563 Troponin I (<0.11 ng/ml) < 0.01 Total Protein (6.3 - 8.2 g/dL) 7.3 Albumin (3.5 - 5.0 g/dL) 4.5 Globulin (1.9 - 4.2 gm/dL) 2.8 Albumin/Globulin Ratio (1.1 - 2.2 %) 1.6 Hematology CBC w Diff NO MAN DIFF REQ WBC (4.8 - 10.8 /CUMM) 9.3 RBC (4.70 - 6.10 /CUMM) 4.01 L Hgb (14.0 - 18.0 G/DL) 13.3 L Hct (42 - 52 %) 39.0 L MCV (80.0 - 94.0 FL) 97.1 H MCH (27.0 - 31.0 PG) 33.3 H RDW (11.5 - 14.5 %) 13.7 Plt Count (130 - 400 /CUMM) 220 MPV (7.4 - 10.4 FL) 6.9 L Gran % (42.2 - 75.2 %) 87.9 H Lymphocytes % (20.5 - 51.1 %) 9.1 L Monocytes % (1.7 - 9.3 %) 2.7 Eosinophils % (0 - 5 %) 0.1 Basophils % (0.0 - 2.0 %) 0.2 Absolute Granulocytes (1.4 - 6.5 /CUMM) 8.2 H Absolute Lymphocytes (1.2 - 3.4 /CUMM) 0.8 L Absolute Monocytes (0.10 - 0.60 /CUMM) 0.3 Absolute Eosinophils (0.0 - 0.7 /CUMM) 0 Absolute Basophils (0.0 - 0.2 /CUMM) 0 PUBS MCHC (33.0 - 37.0 G/DL) 34.2 Toxicology Urine Opiates Screen (>2000 NG/ML) < 100.00 Methadone Screen (>300 NG/ML) 46 Barbiturate Screen (>200 NG/ML) < 60 Ur Phencyclidine Scrn (>25 NG/ML) < 6.00 Amphetamines Screen (>1000 NG/ML) < 100 U Benzodiazepines Scrn (>200 NG/ML) < 85 Urine Cocaine Screen (>300 NG/ML) < 50 Urine Cannabis Screen (>50 NG/ML) < 5.00 Serum Alcohol (<10 MG/DL) < 10.0 Urines Urinalysis LIGHT H Urine Color (YEL,AMB,STR) YEL Urine Clarity (CLEAR) CLEAR Urine pH (5.0 - 8.0) 6.0 Ur Specific [place] (1.001 - 1.035) 1.020 Urine Protein (NEG,<30 MG/DL) 30 H Urine Ketones (NEG) NEG Urine Nitrite (NEG) NEG Urine Bilirubin (NEG) NEG Urine Urobilinogen (0.1 - 1.0 EU/dl) 0.2 Ur Leukocyte Esterase (NEG) NEG Ur Microscopic SEDIMENT EXAMINED Urine RBC (0 - 5 /HPF) 5-10 H Urine WBC (0 - 2 /HPF) 1-3 H Ur Epithelial Cells (NONE,FEW) MOD H Hyaline Casts (0/LPF) 1-3 H Granular Casts (NONE /LPF) 1-3 H Urine Mucus (FEW,NONE) RARE Urine Hemoglobin (NEG) MOD H Urine Glucose (N MG/DL) NEG 07/14 1107 Miscellaneous Ref Lab Test Result Pending Last 24 Hours of Andre Results: Blood culture July 14 negative CSF culture July 14 negative, with AFB smear pending Urine culture July 14 negative Rapid flu swab July 14 negative Quick strep and throat culture July 14 negative Diagnostic Data Recent Imaging Findings: CT of the head without contrast revealed left frontal hypoattenuation. MRI of the head with and without gadolinium revealed an abnormal platelike and nodular pachymeningeal enhancement within the left frontal and right anterior temporal regions with associated nonenhancing, likely reactive, parenchymal changes, possibly with some petechial hemorrhage and leptomeningeal enhancement in the involved left frontal region; abnormal enhancement in the right internal auditory canal extending into the right inner ear structures, with a small amount of fluid in the right petrous apex. Chest x-ray negative Assessment/Plan Assessment/Plan Impression: This is a 52-year-old man, HIV positive for over 25 years, with an undetectable viral load and a CD4 count of 800 on antiretroviral therapy when last tested 8 months prior to admission, with a history of recurrent herpes zoster over the right chest and chronic right ear clogging, status post a syncopal episode 8 weeks prior to admission, since which he has noted left frontal and, more recently, parietal headaches and left facial and left upper extremity numbness, admitted on July 14 after a grand mal seizure at home, found to be febrile to 102 with an MRI of the head revealing pachymeningeal enhancement within the left frontal and right anterior temporal regions and with the CSF revealing a lymphocytic pleocytosis with an elevated protein. The etiology of his [employer] lesions is unclear. An opportunistic infection, for example cryptococcus, toxoplasmosis or progressive multifocal leukoencephalopathy, would be unlikely given his CD4 count. TB is unlikely given the lack of any epidemiologic history. Herpes zoster, given his history of recurrent zoster, could be considered but would be unlikely to cause discrete lesions. A brain abscess could be considered, particularly with his ear complaints, though the [employer] lesions are not suggestive of abscesses. Lymphoma seems most likely and suspect that he will require a brain biopsy for diagnosis. Have discussed with Neurology and his CSF could be sent for flow cytometry, which may help make this diagnosis. He was begun on antibiotics for the unlikely possibly a bacterial meningitis, and these can be continued pending the final CSF cultures. Suggestion: 1. Maintain droplet precautions until he has been on antibiotics for 24 hours 2. Send CSF for cryptococcal antigen, RPR, PCR for VZV, HSV and EBV and flow cytometry (already requested) 3. Serum for cryptococcal antigen and QuantiFERON (already requested) 4. Neurosurgery evaluation for brain biopsy 5. Follow-up CSF cultures 6. Continue Ceftriaxone 2 g IV every 12 hours pending above 7. Continue Decadron 10 mg IV every 6 hours pending above Consult Acknowledgment - Thank you for your consult request.
--- NOTE | 2017-07-15 11:43 | Cons- Neurology ---
General Information and HPI Consulting Request Date of Consult: 07/15/17 Requested By: Jhon LANCASTER,Joanne Reason for Consult: First time seizure Source of Information: patient, old records Exam Limitations: no limitations History of Present Illness: This is a very pleasant 52-year-old right handed HIV positive man who presented to the hospital the other day after his found him seizing on the sofa. In the hospital he had a second seizure. I was called and recommended starting him on Keppra and he was loaded with this. He has not had any further seizures since that time. On further imaging it was found that he had leptomeningeal nodular enhancement and extension of T2 signal into the left frontal parenchyma in the right temporal parenchyma. Further note for T2 signal abnormalities in enhancement within the right ear canal. Currently the patient is feeling better. He admits that over the last 6 weeks he has had a new onset left sided headache that was most prominent in the mornings. He admits also to night sweats but says that he has had that for a long time. She notes that over the last few days his right ear was bothering him and he felt stuffy but that this was not unusual for him as he has had multiple right ear infections in the past. He also notes that a few weeks ago he had transient right face and arm numbness that went away. 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 He was treated at a time with amphotericin B and Diflucan. However over the last few decades he has had an undetectable viral load and CD4 count in the 800s. This is still the case today. Allergies/Medications Allergies: Coded Allergies: Phenothiazines (Severe, MOUTH SPASMS, TONGUE BITING 07/14/17) morphine (SEVERE HYPOTENSION AND NAUSEA 07/14/17) Home Med List: Abacavir/Dolutegravir/Lamivudi (Triumeq Tablet) 600 MG-50 MG-300 MG TABLET 1 TAB PO DAILY HIV (Reported) Propranolol HCl 10 MG TABLET 1 TAB PO DAILY PRN UNKNOWN (Reported) Trazodone HCl 50 MG TABLET 1 TAB PO QPM SLEEP (Reported) Valacyclovir HCl (Valacyclovir) 1,000 MG TABLET 1 TAB PO TID UNKNOWN ( Reported) Current Medications: Current Medications Sig/Kayleigh Start time Last Medication Dose Route Stop Time Status Admin Acetaminophen 0 .STK-MED ONE 07/14 1648 DC IV Acetaminophen 1,000 MG ONCE ONE 07/14 1645 DC 07/14 N/A 1 UNIT IV 07/14 1659 1648 Acetaminophen 1,000 MG Q6P PRN 07/14 1445 AC IV Acetaminophen 500 MG Q6P PRN 07/14 1445 AC PO Ceftriaxone Sodium 0 .STK-MED ONE 07/14 1858 DC .ROUTE Ceftriaxone Sodium 2,000 MG ONCE ONE 07/14 1845 DC 07/14 IV 07/14 1846 2000 Dexamethasone 10 MG ONCE ONE 07/14 1915 DC 07/14 IV 07/14 191 1928 Dexamethasone 10 MG .[ONCE\] 07/14 1900 AC Dextrose/Water 50 ML IV Emtricitabine/ 1 TAB DAILY 07/15 1000 AC Tenofovir PO Enoxaparin Sodium 40 MG DAILY 07/15 1000 AC 07/15 SC 1043 Ibuprofen 600 MG Q6P PRN 07/14 1445 CAN PO Levetiracetam 500 MG BID 07/14 2200 AC 07/15 PO 1043 Levetiracetam 1,000 MG ONCE ONE 07/14 1245 DC 07/14 N/A 1 UNIT IV 07/14 1259 1423 Lidocaine 0 .STK-MED ONE 07/14 1647 DC .ROUTE Lidocaine 0 .STK-MED ONE 07/14 1615 DC .ROUTE Lidocaine 20 ML ONCE ONE 07/14 1515 DC 07/14 ID 07/14 1516 1544 Lidocaine 0 .STK-MED ONE 07/14 1510 DC .ROUTE Morphine Sulfate 4 MG ONCE ONE 07/14 1515 DC 07/14 IV 07/14 1516 1525 Morphine Sulfate 0 .STK-MED ONE 07/14 1515 DC .ROUTE Non-Formulary 0 SEE ADMIN CRITERIA 07/14 1815 CAN Medication ANY Ondansetron HCl 4 MG ONCE ONE 07/14 1530 DC 07/14 IV 07/14 1531 1536 Ondansetron HCl 0 .STK-MED ONE 07/14 1521 DC .ROUTE Raltegravir 400 MG BID 07/15 1000 AC PO Sodium Chloride 1,000 ML BOLUS ONE 07/14 1530 DC 07/14 IV 07/14 1629 1536 Sodium Chloride 1,000 ML BOLUS ONE 07/14 1530 DC 07/14 IV 07/14 1629 1536 Vancomycin HCl 1,000 MG ONCE ONE 07/14 1845 DC 07/14 Sodium Chloride 250 ML IV 07/14 Past History Travel History Traveled to [place] past 21 day No Medical History Neurological: meningitis (cryptococcal), multiple shingle infections Cardiovascular: hypertension Psychiatric: anxiety, insomnia Blood Disorders: HIV Other Medical Hx: Multiple ear infections Surgical History Surgical History: non-contributory Psychosocial History Where Do You Live? Home Smoking Status: Never Smoked ETOH Use: occasional use Illicit Drug Use: Smoking Pot 1-2/year Exam & Diagnostic Data Vital Signs and I&O Vital Signs Date Time Temp Pulse Resp B/P B/P Pulse O2 O2 Flow FiO2 Mean Ox Delivery Rate 07/15 0647 98.2 72 18 128/78 95 Room Air 07/14 2237 98.2 98 18 128/79 97 Room Air 07/14 1719 101.1 07/14 1719 101.1 98 18 114/79 97 Nasal 3.0L Cannula 07/14 1649 102.2 103 15 143/89 Room Air Room Air 07/14 1648 102.2 07/14 1601 Room Air Room Air 07/14 1544 93 15 134/89 95 Nasal 2.0L Cannula 07/14 1523 52 15 62/35 90 Room Air Room Air 07/14 1440 97.8 101 18 137/84 99 Room Air Intake & Output 07/15 1600 07/15 0800 07/15 0000 Intake Total 220 Output Total Balance 220 Intake, IV 20 Intake, Oral 200 Patient 160 lb Weight Weight Estimated Measurement Method Physical Exam: General: The patient is in no distress. Pleasant and cooperative. MSE: Alert and oriented 3. Good attention and concentration. Good short-term memory and fund of knowledge reflected through our conversation. Language is fluent with good comprehension and repetition. Cardiovascular: S1 and S2 are normal, regular rate and rhythm, and normal pedal pulses. Vision: Fundoscopic exam does not reveal any abnormalties. Visual mejia are intact. Neurological: Extra ocular movements intact, MIGUEL, face is symmetric, tongue midline, uvula raises equally in the midline, V1-V3 sensation to touch is intact and equal bilaterallty, sternocleidomastoid and trapezius are strong on both sides, muscles of mastication are strong. No dysarthria noted. Motor exam reveals no abnormality of strength. Power is 5-5 throughout the distribution distally and proximally. Sensory exam did not reveal any deficits to touch, temperature, vibration and proprioception. Reflexes are symmetric bilaterally. Cerebellar exam does not reveal any dysmetria. Rapid alternating movements are intact bilaterally. Gait is steady with normal base. Last 48 Hours of Lab Results: Laboratory Tests 07/15 07/15 07/14 0614 0600 1735 Chemistry Sodium (137 - 145 mmol/L) 141 Potassium (3.5 - 5.1 mmol/L) 4.2 Chloride (98 - 107 mmol/L) 107 Carbon Dioxide (22 - 30 mmol/L) 22 Anion Gap (5 - 16) 12 BUN (9 - 20 mg/dL) 13 Creatinine (0.7 - 1.2 mg/dL) 1.0 Estimated GFR (>60 ml/min) > 60 BUN/Creatinine Ratio (7 - 25 %) 13.0 Hematology CBC w Diff NO MAN DIFF REQ WBC (4.8 - 10.8 /CUMM) 8.1 RBC (4.70 - 6.10 /CUMM) 4.22 L Hgb (14.0 - 18.0 G/DL) 13.9 L Hct (42 - 52 %) 41.3 L MCV (80.0 - 94.0 FL) 97.9 H MCH (27.0 - 31.0 PG) 32.8 H RDW (11.5 - 14.5 %) 14.2 Plt Count (130 - 400 /CUMM) 244 MPV (7.4 - 10.4 FL) 6.7 L Gran % (42.2 - 75.2 %) 72.9 Lymphocytes % (20.5 - 51.1 %) 19.6 L Monocytes % (1.7 - 9.3 %) 7.1 Eosinophils % (0 - 5 %) 0 Basophils % (0.0 - 2.0 %) 0.4 Absolute Granulocytes (1.4 - 6.5 /CUMM) 5.9 Absolute Lymphocytes (1.2 - 3.4 /CUMM) 1.6 Absolute Monocytes (0.10 - 0.60 /CUMM) 0.6 Absolute Eosinophils (0.0 - 0.7 /CUMM) 0 Absolute Basophils (0.0 - 0.2 /CUMM) 0 PUBS MCHC (33.0 - 37.0 G/DL) 33.5 Miscellaneous Ref Lab Test Result Pending Other Body Source CSF WBC (0 - 5 /CUMM) 45 *H CSF RBC (-0 /CUMM) 6 H CSF Comment 07/14 07/14 07/14 07/14 1735 1717 1705 1419 Hematology Lymphocytes (%) 82 % Normal PMNs (%) 3 Misc Hematology Test (%) Miscellaneous Flow Cytometry Specimen Pending Ref Lab Test Result Pending Ref Lab Test Result Pending Ref Lab Test Result Pending Other Body Source Fluid LDH (U/L) 158 CSF Glucose (40 - 70 mg/dL) 57 CSF Total Protein (12 - 60 mg/dL) 110 H CSF VDRL Pending Serology Herpes Simplex Source Pending HSV I DNA PCR Pending HSV II DNA PCR Pending HIV 1&2 RNA (PCR) Pending Virus Culture Pending 07/14 07/14 1350 1140 Chemistry Sodium (137 - 145 mmol/L) 135 L Potassium (3.5 - 5.1 mmol/L) 4.2 Chloride (98 - 107 mmol/L) 101 Carbon Dioxide (22 - 30 mmol/L) 15 L Anion Gap (5 - 16) 19 H BUN (9 - 20 mg/dL) 11 Creatinine (0.7 - 1.2 mg/dL) 1.1 Estimated GFR (>60 ml/min) > 60 BUN/Creatinine Ratio (7 - 25 %) 10.0 Glucose (65 - 99 mg/dL) 174 H Calcium (8.4 - 10.2 mg/dL) 9.0 Magnesium (1.6 - 2.3 mg/dL) 2.5 H Total Bilirubin (0.2 - 1.3 mg/dL) 0.4 AST (17 - 59 U/L) 36 ALT (21 - 72 U/L) 35 Alkaline Phosphatase (< 127 U/L) 69 Lactate Dehydrogenase (313 - 618 U/L) 563 Troponin I (<0.11 ng/ml) < 0.01 Total Protein (6.3 - 8.2 g/dL) 7.3 Albumin (3.5 - 5.0 g/dL) 4.5 Globulin (1.9 - 4.2 gm/dL) 2.8 Albumin/Globulin Ratio (1.1 - 2.2 %) 1.6 Hematology CBC w Diff NO MAN DIFF REQ WBC (4.8 - 10.8 /CUMM) 9.3 RBC (4.70 - 6.10 /CUMM) 4.01 L Hgb (14.0 - 18.0 G/DL) 13.3 L Hct (42 - 52 %) 39.0 L MCV (80.0 - 94.0 FL) 97.1 H MCH (27.0 - 31.0 PG) 33.3 H RDW (11.5 - 14.5 %) 13.7 Plt Count (130 - 400 /CUMM) 220 MPV (7.4 - 10.4 FL) 6.9 L Gran % (42.2 - 75.2 %) 87.9 H Lymphocytes % (20.5 - 51.1 %) 9.1 L Monocytes % (1.7 - 9.3 %) 2.7 Eosinophils % (0 - 5 %) 0.1 Basophils % (0.0 - 2.0 %) 0.2 Absolute Granulocytes (1.4 - 6.5 /CUMM) 8.2 H Absolute Lymphocytes (1.2 - 3.4 /CUMM) 0.8 L Absolute Monocytes (0.10 - 0.60 /CUMM) 0.3 Absolute Eosinophils (0.0 - 0.7 /CUMM) 0 Absolute Basophils (0.0 - 0.2 /CUMM) 0 PUBS MCHC (33.0 - 37.0 G/DL) 34.2 Toxicology Urine Opiates Screen (>2000 NG/ML) < 100.00 Methadone Screen (>300 NG/ML) 46 Barbiturate Screen (>200 NG/ML) < 60 Ur Phencyclidine Scrn (>25 NG/ML) < 6.00 Amphetamines Screen (>1000 NG/ML) < 100 U Benzodiazepines Scrn (>200 NG/ML) < 85 Urine Cocaine Screen (>300 NG/ML) < 50 Urine Cannabis Screen (>50 NG/ML) < 5.00 Serum Alcohol (<10 MG/DL) < 10.0 Urines Urinalysis LIGHT H Urine Color (YEL,AMB,STR) YEL Urine Clarity (CLEAR) CLEAR Urine pH (5.0 - 8.0) 6.0 Ur Specific Kimball (1.001 - 1.035) 1.020 Urine Protein (NEG,<30 MG/DL) 30 H Urine Ketones (NEG) NEG Urine Nitrite (NEG) NEG Urine Bilirubin (NEG) NEG Urine Urobilinogen (0.1 - 1.0 EU/dl) 0.2 Ur Leukocyte Esterase (NEG) NEG Ur Microscopic SEDIMENT EXAMINED Urine RBC (0 - 5 /HPF) 5-10 H Urine WBC (0 - 2 /HPF) 1-3 H Ur Epithelial Cells (NONE,FEW) MOD H Hyaline Casts (0/LPF) 1-3 H Granular Casts (NONE /LPF) 1-3 H Urine Mucus (FEW,NONE) RARE Urine Hemoglobin (NEG) MOD H Urine Glucose (N MG/DL) NEG 07/14 1107 Miscellaneous Ref Lab Test Result Pending Imaging/Other Studies: Imaging of the brain was reviewed directly. FINDINGS: There is abnormal pachymeningeal enhancement along the left parasagittal frontal convexity with an area of nodularity measuring approximately 5 mm as well as some leptomeningeal involvement in the adjacent left frontal sulci. There is adjacent parenchymal T2 prolongation with facilitated diffusion, regional sulcal effacement, and no definitive abnormal parenchymal enhancement. There is some susceptibility artifact within this region which may reflect some hemosiderin deposition/petechial hemorrhage or possibly be within the sulci. There is an area of pachymeningeal enhancement along the anterior aspect of the right middle cranial fossa with a small area of nodularity measuring 5 mm. Adjacent to this there is also an area of parenchymal T2 prolongation in the anterior right temporal lobe with facilitated diffusion and no enhancement. There is abnormal enhancement within the right internal auditory canal. There is abnormal enhancement within the right cochlea most notably within the basal turn and within the right vestibule. There is asymmetric pneumatization of the petrous apices, left more pneumatized than right. On the CT there was a small amount of opacification in one of the right petrous apex air cells. There is the suggestion of faint asymmetric enhancement in the right petrous apex when comparing the pre and postcontrast axial T1-weighted images (see for example series 8 image 4 versus series 14 image 4). Otherwise marrow signal appears preserved. No abnormally restricted diffusion. A few additional punctate foci of T2 prolongation are seen in the left frontal and right frontal deep white matter, nonspecific and nonenhancing. No extra-axial collections. No shift of the normally midline structures. The major arterial and venous flow voids are preserved. There is mild generalized prominence of the ventricles and sulci. No abnormalities of the posterior fossa. The cerebellar tonsils are normally positioned. The sellar and suprasellar regions appear unremarkable. There is mild mucosal thickening in the ethmoid air cells. The nasal cavity, nasopharynx, and mastoid air cells are clear. The orbits appear unremarkable. IMPRESSION: There is abnormal platelike and nodular pachymeningeal enhancement seen within the left frontal and right anterior temporal regions with associated nonenhancing, likely reactive, parenchymal changes. There is some scattered susceptibility artifact, possibly some petechial hemorrhage, and leptomeningeal enhancement in the involved left frontal region. In addition, there is abnormal enhancement in the right internal auditory canal extending into the right inner ear structures. There is a small amount of fluid in the right petrous apex with equivocal associated enhancement. In the setting of HIV/immunocompromise, an atypical/opportunistic infectious process is of concern including fungal and/or mycobacterial processes. Neoplasm such as lymphoma or granulomatous disease can have unusual appearances. Correlation with CSF analysis is suggested. Assessment/Plan Assessment: This is a 52-year-old man with HIV who is not currently in aids, who presents with 2 seizures and found to have leptomeningeal enhancement in nodularity within the left frontal and right temporal lobes. There is no clear discrete lesion within the parenchyma. There is also enhancement and signal changes within the right ear canal. His CSF reveals 45 white cells with a lymphocytic predominance and elevation of protein likely related to his HIV status.) The differential should include fungal or cryptococcal infection and lymphoma. The fact that he is not sick and not really meningitic may be suggestive of the latter. Would recommend focusing on fungal infections and rolling in lymphoma possibly flow cytometry. Recommendations: 1. The case was discussed Mane Mancini MD. We agreed that a good approach would be to do a large volume tap under interventional radiology and send as much fluid for cytology and flow cytometry to within rule out lymphoma. 2. Follow-up cryptococcal antigen in the CSF. 3. Continue with Keppra at the current dose. 4. Obtain an EEG. 5. If the flow cytometry and CSF studies do not yield a clear answer would need to biopsy likely the frontal lesion. Consult Acknowledgment - Thank you for your consult request.
[2017-07-15 12:30] VITALS: BP 133/82
--- NOTE | 2017-07-15 15:59 | Patient Discharge Instructions ---
Discharge Instructions General Discharge Information Special Instructions: - Please follow up with your primary care physician within 1-2 week of discharge. Inform your primary care physician of this admission to [facility]. - Continue your current medications per discharge instructions. - Please watch for these problems: Fever, Chills, Nausea, Vomiting, Shortness of Breath, Productive Cough, Chest Pain/Discomfort, Abdominal Pain, Active Bleeding or Bloody urine/stool. Diet Continue normal diet: Yes Activity Full Activity/No Limits: Yes Acute Coronary Syndrome Inclusion Criteria At DC or during hospital stay patient has or had the following: ACS DIAGNOSIS No Discharge Core Measures Meds if any: Prescribed or Continued at Discharge Meds if any: NOT Prescribed or Continued at Discharge Congestive Heart Failure Inclusion Criteria At DC or during hospital stay patient has or had the following: CHF DIAGNOSIS No Discharge Core Measures Meds if any: Prescribed or Continued at Discharge Meds if any: NOT Prescribed or Continued at Discharge Cerebrovascular accident Inclusion Criteria At DC or during hospital stay patient has or had the following: CVA/TIA Diagnosis No Discharge Core Measures Meds if any: Prescribed or Continued at Discharge Meds if any: NOT Prescribed or Continued at Discharge Venous thromboembolism Inclusion Criteria VTE Diagnosis No VTE Type NONE VTE Confirmed by (Test) NONE Discharge Core Measures - Per Current guidelines, there needs to be overlap - treatment for the first 5 days of Warfarin therapy. - If discharged on Warfarin prior to 5 days of - overlap therapy, the patient will need to be - assessed for post discharge needs including - *Post discharge parental anticoagulation - *Warfarin and/or parental anticoagulation education - *Follow up date to check INR post discharge At least 5 days overlap therapy as Inpatient No Meds if any: Prescribed or Continued at Discharge Note: Overlap Therapy is Warfarin and Anticoagulant Meds if any: NOT Prescribed or Continued at Discharge
--- NOTE | 2017-07-15 16:00 | Discharge Summary ---
Visit Information Visit Dates Admission Date: 07/14/17 Hospital Course Course Attending Physician: Jessica Abernathy MD Primary Care Physician: Reilly Love MD Allergies: Coded Allergies: Phenothiazines (Severe, MOUTH SPASMS, TONGUE BITING 07/14/17) morphine (SEVERE HYPOTENSION AND NAUSEA 07/14/17) Disposition Summary Disposition Discharge Disposition: home or self care Discharge Instructions General Discharge Information Code Status: Full Code Patient's Diet: Regular Patient's Activity: As tolerated Medications at Discharge Discharge Medications: Stop taking the following medications: Propranolol HCl (Propranolol HCl) 10 MG TABLET ORAL DAILY as needed for UNKNOWN Qty = 30 Valacyclovir HCl (Valacyclovir) 1,000 MG TABLET ORAL THREE TIMES DAILY Qty = 30 Continue taking these medications: Abacavir/Dolutegravir/Lamivudi (Triumeq Tablet) 600 MG-50 MG-300 MG TABLET 1 Tablet ORAL DAILY Qty = 90 Comments: Last Taken: 07/18/17 Time: 9:00 AM Trazodone HCl (Trazodone HCl) 50 MG TABLET 1 Tablet ORAL Every night Qty = 30 Comments: NOT GIVEN IN HOSPITAL Start taking the following new medications: Levetiracetam (Keppra) 500 MG TABLET 500 Milligram ORAL TWICE DAILY Qty = 10 No Refills Copies To: Reilly Love MD
[2017-07-15 18:22] VITALS: BP 122/73
[2017-07-15 18:59] VITALS: BP 142/96
[2017-07-15 22:16] VITALS: BP 130/88
[2017-07-16 07:00] VITALS: BP 130/84
--- NOTE | 2017-07-16 10:28 | PN- Housestaff ---
Grzegorz LANCASTER,[facility] 07/16/17 1027: Subjective Follow-up For: #Brain Lesion #New-Onset seizure #HIV Subjective: No acute events overnight. No complaints. Review of Systems Constitutional: Reports: no symptoms. Cardiovascular: Reports: no symptoms. Respiratory: Reports: no symptoms. Gastrointestinal: Reports: no symptoms. Genitourinary: Reports: no symptoms. Musculoskeletal: Reports: no symptoms. Objective Last 24 Hrs of Vital Signs/I&O Vital Signs Date Time Temp Pulse Resp B/P B/P Pulse O2 O2 Flow FiO2 Mean Ox Delivery Rate 07/16 1323 97.9 84 20 140/62 97 Room Air 07/16 0700 97.6 83 18 130/84 98 Room Air 07/15 2216 98.1 75 20 130/88 98 Room Air 07/15 1859 98.1 75 20 142/96 98 Room Air 07/15 1822 98.2 71 18 122/73 07/15 1519 98.3 80 18 117/79 98 Room Air Intake & Output 07/16 1600 07/16 0800 07/16 0000 Intake Total 100 50 Output Total Balance 100 50 Intake, IV 100 50 Physical Exam General Appearance: Alert, Oriented X3, Cooperative, No Acute Distress Skin Temp/Moisture Exam: Warm/Dry HEENT: neck flexion and extension without any meningeal signs Cardiovascular: Regular Rate, Normal S1, Normal S2 Lungs: Clear to Auscultation, Normal Air Movement Abdomen: Normal Bowel Sounds, Soft, No Tenderness Vascular: 2+ radial pulses Current Medications: Current Medications Sig/Kayleigh Start time Last Medication Dose Route Stop Time Status Admin Acetaminophen 0 .STK-MED ONE 07/15 1419 DC PO Acetaminophen 1,000 MG Q6P PRN 07/14 1445 IV Acetaminophen 500 MG Q6P PRN 07/14 1445 AC 07/15 PO 1417 Ceftriaxone Sodium 0 .STK-MED ONE 07/15 1350 DC .ROUTE Ceftriaxone Sodium 2,000 MG Q12 07/15 1315 AC 07/16 IV 0913 Dexamethasone 10 MG Q6H 07/15 2000 AC 07/16 Dextrose/Water 50 ML IV 1329 Dexamethasone 10 MG Q6 07/15 1316 DC 07/15 Dextrose/Water 50 ML IV 1402 Emtricitabine/ 1 TAB DAILY 07/15 1000 DC Tenofovir PO Enoxaparin Sodium 40 MG DAILY 07/15 1000 AC 07/16 SC 1053 Influenza Virus 0.5 ML ONCE ONE 07/15 1899 DC Vaccine IM 07/15 190 Levetiracetam 500 MG BID 07/14 2200 AC 07/16 PO 0913 Non-Formulary 0 SEE ADMIN CRITERIA 07/15 1500 CAN Medication ANY Patient Own 1 UNIT DAILY 07/15 1500 AC 07/16 Medication PO 0917 Raltegravir 400 MG BID 07/15 1000 DC PO Assessment/Plan Assessment: Mr. Carrillo is a 52yo M w/ PMH of HIV on Abacavir/Dolutegravir/Lamivudi, remote high blood pressure and anxiety on propranolol PRN, presented to the ER with CC 2 witness seizures and new brain lesion. #Brain Lesion Head CT: Left frontal hypoattenuation with probable loss of lopez-white matter differentiation is nonspecific given the patient's history. This could represent an infarct of uncertain acuity favoring acute or subacute. Alternatively, this could be associated with a parenchymal lesion and represents surrounding edema. Meningitis/Encephalitis/Lymphoma: patient's incidental findings of frontal and temporal lesions on MRI could be part of infectious/viral/fungal infection, or lymphoma pending rule out by CSF/cytology. Lumbar puncture showed clear tap w/ elevated protein, WBC, and normal glucose, and patient's spiked fever of 102 once, negative physical exams, leaned toward more of viral/fungal infection, and lymphoma pending rule out. MRI brain 07/14/2017:here is abnormal platelike and nodular pachymeningeal enhancement seen within the left frontal and right anterior temporal regions with associated nonenhancing, likely reactive, parenchymal changes. There is some scattered susceptibility artifact, possibly some petechial hemorrhage, and leptomeningeal enhancement in the involved left frontal region. In addition, there is abnormal enhancement in the right internal auditory canal extending into the right inner ear structures. There is a small amount of fluid in the right petrous apex with equivocal associated enhancement. In the setting of HIV/ immunocompromise, an atypical/opportunistic infectious process is of concern including fungal and/or mycobacterial processes. Neoplasm such as lymphoma or granulomatous disease can have unusual appearances. Correlation with CSF analysis is suggested. Cryptococcal antigen negative -Follow-up herpes CPR, HIV load, TB testing, viral cultures -f/u neurosurgery consult for biopsy - continue Ceftriaxone 2g IV q12, and Decadron 10mg IV q6 #New-Onset seizure Interventions in ER: Keppra IV 1000U EKG: Normal sinus rhythm with some PVCs Seizure: unclear causes, but likely due to brain lesions unless proven otherwise. -f/u EEG -Keppra 500mg PO BID for seizure prophylaxis. #HIV HIV/CD4 status: pending CD4 lab to confirm patient's immune status was still active from last time he was checked. If patient would be active HIV with detectable viral load/dropping CD4 count, HIV-related meningitis/encephalitis would be more likely, else, differential dx would lean towards other etiology of immunocompetent individuals. -f/u CD4 #home meds - Continued home meds of Triumeq (from home), Trazodone 50mg qpm DVT prophylaxis Lovenox + ALPS Heart Healthy Diet Full Code Problem List: 1. Brain lesion 2. HIV (human immunodeficiency virus infection) 3. New onset seizure Pain Ratin Pain Location: none Pain Goal: Pain 4 or less Pain Plan: pain pathway Tomorrow's Labs & Rationales: cbc jackeline FernandoFeliz schmidtidania 07/16/17 1509: Attending MD Review Statement Attending Statement Attending MD Statement: examined this patient, discuss w/resident/PA/SUBCONTRACT ADMINISTRATOR, agreed w/resident/PA/SUBCONTRACT ADMINISTRATOR, discussed with family, reviewed EMR data (avail), discussed with nursing, discussed with case mgmt, reviewed images, amended to note Attending Assessment/Plan: 52 o/m with pmh of hiv with CD 4 count >800 maintained on oral regimen as outpatient and follows ID as outpatient. Patient came to ER with two witnessed seizure episodes with urinary incontinence and tongue bite. Patient c/o frontal headache ongoign for past few days. No Focal neurologic deficit. Neurology and ID consulted in ER. Labs and imaging reviewed, Overnight c/o sweats but no docuemnted temp. CD 4 256. He does c/o mild hearing loss of right ear. CT head possible frontoparietal mass. MRI brain with leptomeningeal enhancement on frontal lobe and temporal lobe. CSF analysis suggestive of lymphocytosis with pleocytosis. Continue to inpatient medical services for seziures and possible frontal mass and temporal lesion possible ear infection in HIV patient setting, Neurology consulted and recommend flow cytometry. Neurochecks q 4, fall precautions. c/w keppra 500 bid as per neurology. Abx as per ID. Follow ID and neurology. HAART as per ID. F/u LABS. Resumed home meds. Obtain previous records. cont supportive care. gi/dvt prophylaxis full code, plan of care d/tue patient.
[2017-07-16 13:23] VITALS: BP 140/62
[2017-07-16 23:11] VITALS: BP 140/85
[2017-07-17 06:55] VITALS: BP 131/88
[2017-07-17 09:46] LABS: ABSOLUTE BASOPHIL COUNT 0 /CUMM (0.0-0.2); ABSOLUTE EOSINOPHIL COUNT 0 /CUMM (0.0-0.7); ABSOLUTE GRANULOCYTE CT 13.2 /CUMM (1.4-6.5); ABSOLUTE LYMPH COUNT 1.2 /CUMM (1.2-3.4); ABSOLUTE MONOCYTE COUNT 0.4 /CUMM (0.10-0.60); BASOPHIL % 0 % (0.0-2.0); EOSINOPHIL % 0 % (0-5); GRANULOCYTE % 89.2 % (42.2-75.2); MEAN CORPUSCULAR HGB 33.8 PG (27.0-31.0); MEAN CORPUSCULAR HGB CONC 34.7 G/DL (33.0-37.0); MEAN CORPUSCULAR VOLUME 97.5 FL (80.0-94.0); MEAN PLATELET VOLUME 7.8 FL (7.4-10.4); PLATELET COUNT 282 /CUMM (130-400); RBC DISTRIBUTION WIDTH 14.3 % (11.5-14.5); RED BLOOD CELL CT 4.31 /CUMM (4.70-6.10)
--- NOTE | 2017-07-17 09:51 | PN- Housestaff ---
Grzegorz LANCASTER,[facility] 07/17/17 0950: Subjective Follow-up For: Brain Lesion New-Onset seizure HIV Subjective: No acute events overnight. States some night sweats. Couldnt sleep. Complaining of ear wax still. Review of Systems Constitutional: Reports: see HPI (night sweats). EENTM: Reports: see HPI (ear wax). Cardiovascular: Reports: no symptoms. Respiratory: Reports: no symptoms. Gastrointestinal: Reports: no symptoms. Genitourinary: Reports: no symptoms. Neurological/Psychological: Reports: see HPI (insomnia). Objective Last 24 Hrs of Vital Signs/I&O Vital Signs Date Time Temp Pulse Resp B/P B/P Pulse O2 O2 Flow FiO2 Mean Ox Delivery Rate 07/17 1441 97.4 64 18 134/90 98 07/17 0655 97.5 74 18 131/88 97 Room Air 07/16 2311 97.8 80 18 140/85 96 Room Air Intake & Output 07/17 1600 07/17 0800 07/17 0000 Intake Total 370 1270 Output Total Balance 370 1270 Intake, IV 130 70 Intake, Oral 240 1200 Physical Exam General Appearance: Alert, Oriented X3, Cooperative Skin Temp/Moisture Exam: Warm/Dry Cardiovascular: Regular Rate, Normal S1, Normal S2 Lungs: Clear to Auscultation, Normal Air Movement Abdomen: Normal Bowel Sounds, Soft, No Tenderness Vascular: 2+ radial pulses Current Medications: Current Medications Sig/Kayleigh Start time Last Medication Dose Route Stop Time Status Admin Acetaminophen 1,000 MG Q6P PRN 07/14 1445 AC IV Acetaminophen 500 MG Q6P PRN 07/14 1445 AC 07/15 PO 1417 Carbamide Peroxide 5 GTT BID 07/18 1000 AC OTIC 07/21 2201 Ceftriaxone Sodium 2,000 MG Q12 07/15 1315 DC 07/16 IV 2041 Dexamethasone 10 MG Q6H 07/15 2000 DC 07/17 Dextrose/Water 50 ML IV 0228 Enoxaparin Sodium 40 MG DAILY 07/15 1000 AC 07/17 SC 1028 Levetiracetam 500 MG BID 07/14 2200 AC 07/17 PO 1029 Neomycin/Polymyxin/ 4 GTT BID 07/16 1700 AC 07/17 Bacitr/Hydrocort OTIC 07/26 1001 1029 Patient Own 1 UNIT DAILY 07/15 1500 AC 07/17 Medication PO 1029 Last 24 Hrs of Lab/Andre Results Last 24 Hrs of Labs/Mics: Laboratory Tests 07/17/17 0720: Anion Gap 12, Estimated GFR > 60, BUN/Creatinine Ratio 16.3, CBC w Diff NO MAN DIFF REQ, RBC 4.31 L, MCV 97.5 H, MCH 33.8 H, RDW 14.3, MPV 7.8, Gran % 89.2 H, Lymphocytes % 8.0 L, Monocytes % 2.8, Eosinophils % 0, Basophils % 0, Absolute Granulocytes 13.2 H, Absolute Lymphocytes 1.2, Absolute Monocytes 0.4, Absolute Eosinophils 0, Absolute Basophils 0, PUBS MCHC 34.7 Assessment/Plan Assessment: Mr. Carrillo is a 52yo M w/ PMH of HIV on Abacavir/Dolutegravir/Lamivudi, remote high blood pressure and anxiety on propranolol PRN, presented to the ER with CC 2 witness seizures and new brain lesion. #Brain Lesion Head CT: Left frontal hypoattenuation with probable loss of lopez-white matter differentiation is nonspecific given the patient's history. This could represent an infarct of uncertain acuity favoring acute or subacute. Alternatively, this could be associated with a parenchymal lesion and represents surrounding edema. Meningitis/Encephalitis/Lymphoma: patient's incidental findings of frontal and temporal lesions on MRI could be part of infectious/viral/fungal infection, or lymphoma pending rule out by CSF/cytology. Lumbar puncture showed clear tap w/ elevated protein, WBC, and normal glucose, and patient's spiked fever of 102 once, negative physical exams, leaned toward more of viral/fungal infection, and lymphoma pending rule out. MRI brain 07/14/2017:here is abnormal platelike and nodular pachymeningeal enhancement seen within the left frontal and right anterior temporal regions with associated nonenhancing, likely reactive, parenchymal changes. There is some scattered susceptibility artifact, possibly some petechial hemorrhage, and leptomeningeal enhancement in the involved left frontal region. In addition, there is abnormal enhancement in the right internal auditory canal extending into the right inner ear structures. There is a small amount of fluid in the right petrous apex with equivocal associated enhancement. In the setting of HIV/ immunocompromise, an atypical/opportunistic infectious process is of concern including fungal and/or mycobacterial processes. Neoplasm such as lymphoma or granulomatous disease can have unusual appearances. Correlation with CSF analysis is suggested. Cryptococcal antigen negative -Follow-up csf cytology herpes CPR, HIV load, TB testing, viral cultures -f/u neurosurgery after cytology results - discontinue Ceftriaxone 2g IV q12, and Decadron 10mg IV q6 #New-Onset seizure Interventions in ER: Keppra IV 1000U EKG: Normal sinus rhythm with some PVCs Seizure: unclear causes, but likely due to brain lesions unless proven otherwise. -f/u EEG -Keppra 500mg PO BID for seizure prophylaxis. #HIV HIV/CD4 status: pending CD4 lab to confirm patient's immune status was still active from last time he was checked. If patient would be active HIV with detectable viral load/dropping CD4 count, HIV-related meningitis/encephalitis would be more likely, else, differential dx would lean towards other etiology of immunocompetent individuals. -f/u CD4/viral load #home meds - Continued home meds of Triumeq (from home), Trazodone 50mg qpm DVT prophylaxis Lovenox + ALPS Heart Healthy Diet Full Code Problem List: 1. HIV (human immunodeficiency virus infection) 2. Brain lesion 3. New onset seizure Pain Ratin Pain Location: none Pain Goal: Pain 4 or less Pain Plan: pain pathway Tomorrow's Labs & Rationales: cbc bep Jessica Abernathy 07/17/17 1125: Attending MD Review Statement Attending Statement Attending MD Statement: examined this patient, discuss w/resident/PA/DIRECTOR OF GUIDANCE, agreed w/resident/PA/DIRECTOR OF GUIDANCE, discussed with family, reviewed EMR data (avail), discussed with nursing, discussed with case mgmt, reviewed images, amended to note Attending Assessment/Plan: 52 o/m with pmh of hiv with CD 4 count >800 maintained on oral regimen as outpatient and follows ID as outpatient. Patient came to ER with two witnessed seizure episodes with urinary incontinence and tongue bite. Patient c/o frontal headache ongoign for past few days. No Focal neurologic deficit. Neurology and ID consulted in ER. Labs and imaging reviewed, Overnight uneventful. CD 4 256. He does c/o mild hearing loss of right ear likely cerumen impaction. CT head possible frontoparietal mass. MRI brain with leptomeningeal enhancement on frontal lobe and temporal lobe. CSF analysis suggestive of lymphocytosis with pleocytosis. Continue to inpatient medical services for seziures and possible frontal mass and temporal lesion possible ear infection in HIV patient setting, Neurology consulted and recommend flow cytometry. Neurochecks q 4, fall precautions. c/w keppra 500 bid as per neurology. D/c Abx as per ID. Follow ID and neurology. HAART as per ID. F/u LABS. Resumed home meds. f/u previous records. cont supportive care. gi/dvt prophylaxis full code, plan of care d/wed patient.
--- NOTE | 2017-07-17 10:09 | PN- Infect Dx ---
Subjective Subjective: Afebrile on steroids. He feels well with no complaints of headaches and no further seizures. Objective Last 24 Hrs of Vital Signs/I&O Vital Signs Date Time Temp Pulse Resp B/P B/P Pulse O2 O2 Flow FiO2 Mean Ox Delivery Rate 07/17 0655 97.5 74 18 131/88 97 Room Air 07/16 2311 97.8 80 18 140/85 96 Room Air 07/16 1323 97.9 84 20 140/62 97 Room Air Intake & Output 07/17 1600 07/17 0800 07/17 0000 Intake Total 370 1270 Output Total Balance 370 1270 Intake, IV 130 70 Intake, Oral 240 1200 Physical Exam Other Physical Findings: He appears well in no acute distress Neck is supple with no adenopathy Lungs are clear Heart regular rhythm with no murmur Results Last 24 Hours of Lab Results: Laboratory Tests 07/17 07 Chemistry Sodium Pending Potassium Pending Chloride Pending Carbon Dioxide Pending Anion Gap Pending BUN Pending Creatinine Pending BUN/Creatinine Ratio Pending Hematology CBC w Diff Pending WBC Pending RBC Pending Hgb Pending Hct Pending MCV Pending MCH Pending RDW Pending Plt Count Pending MPV Pending PUBS MCHC Pending Last 24 Hours of Andre Results: Blood culture July 14 negative CSF culture July 14 negative, with AFB smear negative Urine culture July 14 negative Assessment/Plan Impression: Stable with no further seizures and with temperatures remaining normal (on steroids) on Ceftriaxone Day 3 of treatment for possible meningitis, with his CSF culture negative, and suspect that his CSF pleocytosis represents a parameningeal focus. The etiology of his brain lesions is unclear and possibilities include opportunistic infections, such as CMV, cryptococcus ( unlikely with the serum cryptococcal antigen negative) toxoplasma and PML, all of which are less likely given his CD4 count of 256 (though initially his CD4 count was reported at 800). TB is less likely given the lack of any epidemiologic factors. Still suspect that lymphoma is most likely and feel that a brain biopsy will be necessary to make this diagnosis. Multiple studies on his CSF, including flow cytometry, cryptococcal antigen and PCR for EBV, VZV, and HSV, are pending. Suggestion: 1. Discontinue droplet precautions 2. Neurosurgery evaluation for brain biopsy 3. Send serum for toxoplasma titers 4. Follow-up CSF cryptococcal antigen, RPR, PCR for VZV, HSV and EBV and flow cytometry 5. Follow-up QuantiFERON 6. Serum RPR 7. Discontinue Decadron 8. Discontinue Ceftriaxone and follow off antibiotics pending above
[2017-07-17 11:32] LABS: WHITE BLOOD CELL COUNT 14.8 /CUMM (4.8-10.8)
[2017-07-17 14:41] VITALS: BP 134/90
[2017-07-17 15:31] LABS: VDRL, CSF Reactive 1:2 (Nonreactive)
[2017-07-17 22:15] VITALS: BP 156/100
[2017-07-18 07:31] VITALS: BP 130/86
--- NOTE | 2017-07-18 07:36 | PN- Housestaff ---
See Addendum Subjective Follow-up For: Brain Lesion New-Onset seizure HIV Subjective: No overnighte event. Patient awared of low CD4 count. Review of Systems Constitutional: Reports: see HPI. Objective Last 24 Hrs of Vital Signs/I&O Vital Signs Date Time Temp Pulse Resp B/P B/P Pulse O2 O2 Flow FiO2 Mean Ox Delivery Rate 07/18 730 97.4 73 18 130/86 96 Room Air 07/18 0108 140/90 07/17 2215 98.3 61 18 156/100 95 Room Air 07/17 1441 97.4 64 18 134/90 98 Intake & Output 07/18 1600 07/18 0800 07/18 0000 Intake Total 240 840 Output Total 400 Balance -400 240 840 Intake, Oral 240 840 Output, Urine 400 Physical Exam General Appearance: Alert, Oriented X3, Cooperative, No Acute Distress Cardiovascular: Regular Rate Lungs: Clear to Auscultation, Normal Air Movement Abdomen: Normal Bowel Sounds, Soft, No Tenderness Neurological: Normal Speech Extremities: No Cyanosis, No Edema, Normal Pulses Current Medications: Current Medications Sig/Kayleigh Start time Last Medication Dose Route Stop Time Status Admin Acetaminophen 1,000 MG Q6P PRN 07/14 1445 AC IV Acetaminophen 500 MG Q6P PRN 07/14 1445 AC 07/15 PO 1417 Alprazolam 0.25 MG ONCE ONE 07/18 1100 DC PO 07/18 1101 Alprazolam 0.25 MG ONCE ONE 07/17 2330 DC 07/17 PO 07/17 2331 2333 Amlodipine Besylate 5 MG ONCE ONE 07/17 2330 DC 07/18 PO 07/17 2331 0108 Carbamide Peroxide 5 GTT BID 07/18 1000 AC OTIC 07/21 2201 Enoxaparin Sodium 40 MG DAILY 07/15 1000 AC 07/18 SC 0918 Levetiracetam 500 MG BID 07/14 2200 AC 07/18 PO 0917 Neomycin/Polymyxin/ 4 GTT BID 07/16 1700 AC 07/18 Bacitr/Hydrocort OTIC 07/26 1001 0918 Patient Own 1 UNIT DAILY 07/15 1500 AC 07/18 Medication PO 0917 Last 24 Hrs of Lab/Andre Results Last 24 Hrs of Labs/Mics: Laboratory Tests 07/18/17 0817: Anion Gap 13, Estimated GFR > 60, BUN/Creatinine Ratio 21.3, CBC w Diff NO MAN DIFF REQ, RBC 4.38 L, MCV 98.1 H, MCH 33.1 H, RDW 14.4, MPV 7.5, Gran % 58.8, Lymphocytes % 33.0, Monocytes % 7.5, Eosinophils % 0.2, Basophils % 0.5, Absolute Granulocytes 4.9, Absolute Lymphocytes 2.8, Absolute Monocytes 0.6, Absolute Eosinophils 0, Absolute Basophils 0, PUBS MCHC 33.8 Assessment/Plan Assessment: Mr. Carrillo is a 52yo M w/ PMH of HIV on Abacavir/Dolutegravir/Lamivudi, remote high blood pressure and anxiety on propranolol PRN, presented to the ER with CC 2 witness seizures and new brain lesion. #Brain Lesion Head CT: Left frontal hypoattenuation with probable loss of lopez-white matter differentiation is nonspecific given the patient's history. This could represent an infarct of uncertain acuity favoring acute or subacute. Alternatively, this could be associated with a parenchymal lesion and represents surrounding edema. Meningitis/Encephalitis/Lymphoma: patient's incidental findings of frontal and temporal lesions on MRI could be part of infectious/viral/fungal infection, or lymphoma pending rule out by CSF/cytology. Lumbar puncture showed clear tap w/ elevated protein, WBC, and normal glucose, and patient's spiked fever of 102 once, negative physical exams, leaned toward more of viral/fungal infection, and lymphoma pending rule out. MRI brain 07/14/2017:here is abnormal platelike and nodular pachymeningeal enhancement seen within the left frontal and right anterior temporal regions with associated nonenhancing, likely reactive, parenchymal changes. There is some scattered susceptibility artifact, possibly some petechial hemorrhage, and leptomeningeal enhancement in the involved left frontal region. In addition, there is abnormal enhancement in the right internal auditory canal extending into the right inner ear structures. There is a small amount of fluid in the right petrous apex with equivocal associated enhancement. In the setting of HIV/ immunocompromise, an atypical/opportunistic infectious process is of concern including fungal and/or mycobacterial processes. Neoplasm such as lymphoma or granulomatous disease can have unusual appearances. Correlation with CSF analysis is suggested. Cryptococcal antigen negative -Follow-up csf cytology herpes CPR, HIV load, TB testing, viral cultures -f/u neurosurgery after cytology results - discontinue Ceftriaxone 2g IV q12, and Decadron 10mg IV q6 - VDRL showed reactive, however patient's physical exam/PMH had no syphilis record. Likely false positive. - Pending ID followup if patient is safe to be discharged and follow up in [place] per patient's choice. #New-Onset seizure Interventions in ER: Keppra IV 1000U EKG: Normal sinus rhythm with some PVCs Seizure: unclear causes, but likely due to brain lesions unless proven otherwise. -f/u EEG -Keppra 500mg PO BID for seizure prophylaxis. #HIV HIV/CD4 status: - CD4 258, pending viral load. #home meds - Continued home meds of Triumeq (from home), Trazodone 50mg qpm DVT prophylaxis Lovenox + ALPS Heart Healthy Diet Full Code Problem List: 1. HIV (human immunodeficiency virus infection) 2. Brain lesion 3. New onset seizure Pain Ratin Pain Location: NA Pain Goal: Remain pain free Pain Plan: NA Tomorrow's Labs & Rationales: NA
[2017-07-18 09:21] LABS: ABSOLUTE BASOPHIL COUNT 0 /CUMM (0.0-0.2); ABSOLUTE EOSINOPHIL COUNT 0 /CUMM (0.0-0.7); ABSOLUTE GRANULOCYTE CT 4.9 /CUMM (1.4-6.5); ABSOLUTE LYMPH COUNT 2.8 /CUMM (1.2-3.4); ABSOLUTE MONOCYTE COUNT 0.6 /CUMM (0.10-0.60); BASOPHIL % 0.5 % (0.0-2.0); EOSINOPHIL % 0.2 % (0-5); GRANULOCYTE % 58.8 % (42.2-75.2); MEAN CORPUSCULAR HGB 33.1 PG (27.0-31.0); MEAN CORPUSCULAR HGB CONC 33.8 G/DL (33.0-37.0); MEAN CORPUSCULAR VOLUME 98.1 FL (80.0-94.0); MEAN PLATELET VOLUME 7.5 FL (7.4-10.4); PLATELET COUNT 235 /CUMM (130-400); RBC DISTRIBUTION WIDTH 14.4 % (11.5-14.5); RED BLOOD CELL CT 4.38 /CUMM (4.70-6.10); WHITE BLOOD CELL COUNT 8.4 /CUMM (4.8-10.8)
--- NOTE | 2017-07-18 14:09 | PN- Infect Dx ---
Subjective Subjective: Afebrile without complaints. He has had no further headaches or seizures. Objective Last 24 Hrs of Vital Signs/I&O Vital Signs Date Time Temp Pulse Resp B/P B/P Pulse O2 O2 Flow FiO2 Mean Ox Delivery Rate 07/18 0731 97.4 73 18 130/86 96 Room Air 07/18 0108 140/90 07/17 2215 98.3 61 18 156/100 95 Room Air 07/17 1441 97.4 64 18 134/90 98 Intake & Output 07/18 1600 07/18 0800 07/18 0000 Intake Total 240 840 Output Total 400 Balance -400 240 840 Intake, Oral 240 840 Output, Urine 400 Physical Exam Other Physical Findings: He appears comfortable in no acute distress Exam without change Results Last 24 Hours of Lab Results: Laboratory Tests 07/18 07/18 UNK 0817 Chemistry Sodium (137 - 145 mmol/L) 144 Potassium (3.5 - 5.1 mmol/L) 4.0 Chloride (98 - 107 mmol/L) 107 Carbon Dioxide (22 - 30 mmol/L) 24 Anion Gap (5 - 16) 13 BUN (9 - 20 mg/dL) 17 Creatinine (0.7 - 1.2 mg/dL) 0.8 Estimated GFR (>60 ml/min) > 60 BUN/Creatinine Ratio (7 - 25 %) 21.3 Hematology CBC w Diff NO MAN DIFF REQ WBC (4.8 - 10.8 /CUMM) 8.4 RBC (4.70 - 6.10 /CUMM) 4.38 L Hgb (14.0 - 18.0 G/DL) 14.5 Hct (42 - 52 %) 43.0 MCV (80.0 - 94.0 FL) 98.1 H MCH (27.0 - 31.0 PG) 33.1 H RDW (11.5 - 14.5 %) 14.4 Plt Count (130 - 400 /CUMM) 235 MPV (7.4 - 10.4 FL) 7.5 Gran % (42.2 - 75.2 %) 58.8 Lymphocytes % (20.5 - 51.1 %) 33.0 Monocytes % (1.7 - 9.3 %) 7.5 Eosinophils % (0 - 5 %) 0.2 Basophils % (0.0 - 2.0 %) 0.5 Absolute Granulocytes (1.4 - 6.5 /CUMM) 4.9 Absolute Lymphocytes (1.2 - 3.4 /CUMM) 2.8 Absolute Monocytes (0.10 - 0.60 /CUMM) 0.6 Absolute Eosinophils (0.0 - 0.7 /CUMM) 0 Absolute Basophils (0.0 - 0.2 /CUMM) 0 PUBS MCHC (33.0 - 37.0 G/DL) 33.8 Serology Toxoplasma IgG Ab Pending Toxoplasma IgM Ab Pending Toxoplasma Ab Interp Pending CSF VDRL reactive 1:2 Last 24 Hours of Andre Results: CSF HSV 1 and 2 PCR negative Assessment/Plan Impression: Stable with no further seizures and with temperatures remaining normal now off antibiotics, with his CSF culture negative, suggesting that his CSF pleocytosis represents a parameningeal focus. Am most suspicious that his brain lesions are secondary to lymphoma, with opportunistic infections less likely given his undetectable viral load and CD4 count over 200. The positive CSF VDRL is of interest and may require treatment but it is unlikely to explain the BEHAVIORAL THERAPIST lesions. Have contacted his ID physician, Dr. Reilly Love at [facility], who states that he has had a reactive serum RPR at 1:2 in the past but that it has been negative as well; therefore further evaluation and treatment was not pursued. Unfortunately the flow cytometry cannot be done as the CSF white blood cell count at [place] was only 20 and, therefore, apparently precludes the test from being reliable. QuantiFERON's have also been sent in [place] and have been negative, making TB unlikely. His CD4 count has apparently fluctuated but has remained over 200 and his viral load has remained undetectable for years. Multiple studies on his CSF, including cryptococcal antigen and PCR for EBV and VZV are pending, but his negative serum cryptococcal antigen makes cryptococcal disease unlikely. Toxoplasma is possible but also unlikely with an undetectable viral load. Feel that a brain biopsy will be necessary for diagnosis, and he prefers that this be done at [place]. Suggestion: 1. Would transfer to [place] for a brain biopsy 2. Send serum for toxoplasma titers and RPR 3. Follow-up CSF cryptococcal antigen and PCR for VZV and EBV 4. Will need to consider treatment for possible neurosyphilis but would defer until further workup is performed 5. Continue to follow off antibiotics pending above
[2017-07-18 14:31] VITALS: BP 132/100
[2017-07-18 15:18] VITALS: BP 132/100
--- NOTE | 2017-07-18 15:20 | Discharge Summary ---
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, with an undetectable viral load and a CD4 count of 800 on antiretroviral therapy when last tested 8 months prior to admission, on no pneumocystis or GAGE prophylaxis, with a history of recurrent herpes zoster over the right chest, most recently several months prior to admission, and chronic right ear clogging, status post a syncopal episode 8 weeks prior to admission, since which he has noted left frontal and, more recently, parietal headaches and left facial and left upper extremity numbness, admitted to on July 14 after a grand mal seizure at home and another one in the ambulance on the way to the hospital. On admission he was initially afebrile but he did spike to 102.2 at the emergency department. Data revealed a white blood cell count of 9000, BUN/creatinine 11 and 1.1, with normal liver enzymes. Urinalysis 5-10 RBCs/1-[address] of the head without contrast revealed left frontal hypoattenuation. MRI of the head with and without gadolinium revealed an abnormal platelike and nodular pachymeningeal enhancement within the left frontal and right anterior temporal regions with associated nonenhancing, likely reactive, parenchymal changes, possibly with some petechial hemorrhage and leptomeningeal enhancement in the involved left frontal region; abnormal enhancement in the right internal auditory canal extending into the right inner ear structures, with a small amount of fluid in the right petrous apex. Chest x-ray was negative. A lumbar puncture was performed and revealed 45 white blood cells (3% polys and 82% lymphs), 6 red blood cells, protein 110 and glucose 57. He was given Morphine with consequent hypotension, which quickly resolved. Initially patient was treated for seizure with loading dose of Keppra followed by a standing dose of 500 mg twice a day, patient spiked fever at emergency department up to 102.1F, we spoke to infectious disease specialist Mane Mancini MD who recommend premedicat the patient with Decadron, followed by Vancomycin and Ceftriaxone for possible community-acquired meningitis, patient was maintained on droplet precautions for 24-hour. He has remained afebrile throughout the night He has had no further seizures and offers no complaints at this time. We sent serum for toxoplasma titers, CSF cryptococcal antigen, RPR, PCR for VZV, HSV and EBV and flow cytometry, QuantiFERON, serum RPR. Neurologic consult was placed with Dr. Corona will again recommend sending CSF for cytology and flow cytometry, to continue Keppra and to obtain EEG (Which is not done as the patient getting transfer to [place]). The patient remains afebrile next day so we discontinued Decadron, and antibiotics and we watched him off antibiotic pending test results. Multiple studies on his CSF, including cryptococcal antigen and PCR for EBV and VZV are pending. He has negative serum cryptococcal antigen, negative HSV1 and 2. His CD4 count has apparently fluctuated but the most recent at 07/14/2017 one is 256 and his viral load has remained undetectable for years. QuantiFERON's is negative, he has positive CSF VDRL. have contacted his ID physician, Dr. Reilly Love at [facility], who states that he has had a reactive serum RPR at 1:2 in the past but that it has been negative as well; therefore further evaluation and treatment was not pursued. Will transfer to [place] for a brain biopsy. Will need to consider treatment for possible neurosyphilis but would defer until further workup is performed. Complications: Non Allergies: Coded Allergies: Phenothiazines (Severe, MOUTH SPASMS, TONGUE BITING 07/14/17) morphine (SEVERE HYPOTENSION AND NAUSEA 07/14/17) Disposition Summary Disposition Principal Diagnosis: #Brain Lesion in the setting of HIV which could be related to lymphoma VS opportunistic infection #New-Onset seizure related to a new brain lesion #History of HIV for the last 25 years #History of anxiety Additional Diagnosis: As above Discharge Disposition: other general hospital Discharge Instructions General Discharge Information Code Status: Full Code Patient's Diet: Regular diet Patient's Activity: As tolerated Follow-Up Instructions/Appts: -Follow up with your primary care physician after discharge -Follow up with your ID doctor after discharge -Take your medications as prescribed Medications at Discharge Discharge Medications: Stop taking the following medications: Propranolol HCl (Propranolol HCl) 10 MG TABLET ORAL DAILY as needed for UNKNOWN Qty = 30 Valacyclovir HCl (Valacyclovir) 1,000 MG TABLET ORAL THREE TIMES DAILY Qty = 30 Continue taking these medications: Abacavir/Dolutegravir/Lamivudi (Triumeq Tablet) 600 MG-50 MG-300 MG TABLET 1 Tablet ORAL DAILY Qty = 90 Comments: Last Taken: 07/18/17 Time: 9:00 AM Trazodone HCl (Trazodone HCl) 50 MG TABLET 1 Tablet ORAL Every night Qty = 30 Comments: NOT GIVEN IN HOSPITAL Start taking the following new medications: Levetiracetam (Keppra) 500 MG TABLET 500 Milligram ORAL TWICE DAILY Qty = 10 No Refills Copies To: Jessica Abernathy MD; [facility] [place],Mane Hood Attending MD Review Statement Documenting Attending: Jessica Abernathy MD Other Findings: Patient presented with seizure with two focal lesion in brain in hiv setting cd4 256. Neurology and ID consulted and recommend brain biopsy and patient transferred to [place] for further managment. Spoke to neurosurgeon for brain biopsy. Patient in agreement.
[2017-07-18] MEDS ORDERED: KEPPRA500 M1 PO (15:31)
--- NOTE | 2017-07-19 16:50 | ELECTROENCEPHALOGRAM REPORT ---
Electroencephalogram Report Electroencephalogram Results Date of service: 07/18/17 Attending MD: Jessica Abernathy MD Mental Hygiene Consultant: Erwin Melgoza EEG Number: [id number] Test Utilizes: 10-20 system, 21 lead 18 channel digital recording Pertinent Hx/Physical/Neuro Findings/Clin Diagnosis: 52-year-old man being evaluated for new onset of seizures. Abnormal MRI scan suggestive of lymphoma or sarcoid Inpatient Medications: Current Medications Sig/Kayleigh Start time Last Medication Dose Route Stop Time Status Admin Acetaminophen 1,000 MG Q6P PRN 07/14 1445 DCD IV Acetaminophen 500 MG Q6P PRN 07/14 1445 DCD 07/15 PO 1417 Carbamide Peroxide 5 GTT BID 07/18 1000 DCD 07/18 OTIC 07/21 2201 1238 Enoxaparin Sodium 40 MG DAILY 07/15 1000 DCD 07/18 SC 0918 Levetiracetam 500 MG BID 07/14 2200 DCD 07/18 PO 0917 Neomycin/Polymyxin/ 4 GTT BID 07/16 1700 DCD 07/18 Bacitr/Hydrocort OTIC 07/26 1001 0918 Patient Own 1 UNIT DAILY 07/15 1500 DCD 07/18 Medication PO 0917 Interpretation: The background is composed of well-formed well-modulated 9-10 Hz posterior alpha of moderate amplitude which attenuates on eye opening. Lower amplitude beta is seen frontally. There are no focal, lateralizing or epileptiform abnormalities. No sleep recorded. Hyperventilation and photic stimulation were performed and at no additional information Impression: Normal recording with no focal or epileptiform abnormalities detected
== END 2017-07-18 20:17 | disposition short-term general hospital (02) | DRG 72 ==
LOC: ERH 11:01 → 2NB 12:56 → ERHI 12:56 → ENRESERV 07-15 16:15 → CANRESERV 07-15 17:05 → ENRESERV 07-15 17:05 → ENTRNSPT 07-15 18:09 → 2NB 07-15 18:26 → CMPTRNSPT 07-15 18:44 → ENPENDDIS 07-18 15:30 → 2NB 07-18 20:17
PROVIDERS: Emergency Medicine; Internal Medicine; Student in an Organized Health Care Education/Training Program
DX: G93.9 Disorder of brain, unspecified (principal); F12.90 Cannabis use, unspecified, uncomplicated; Z21 Asymptomatic human immunodeficiency virus [HIV] infection status; R56.9 Unspecified convulsions; F41.9 Anxiety disorder, unspecified; G47.00 Insomnia, unspecified
CPT/HCPCS: 2NBP; 70552; 86361; 86403; 86480; 86592; 87070; 87075; 87205; 87529; ERO; 36415; 70553; 71045; 80307; 81001; 82436; 87040; 87086; 87328; 87329; 87536; 87804; 87804-59; 88184; 93005; 93010; 99291; A9579; G0480; J0131; J0696; J1100; J1650; J1953; J2405